=== PATIENT | male | born 1950 | race African-American/Black ===

== ENCOUNTER 2017-08-30 00:27 | Inpatient (IN) | payer MEDICARE, OTHER ==
[~2017-08-30] VITALS: Ht 167.6 cm; Wt 122.0 kg
[2017-08-30 04:00] VITALS: BP 155/84
[2017-08-30] MEDS ORDERED: AMLODIPINE BESYL5 MG ORAL (04:51)
[2017-08-30] MEDS ORDERED: VIAGRA25 MG ORAL (04:51)
[2017-08-30] MEDS ORDERED: SIMVASTATIN5 MG ORAL (04:51)
[2017-08-30] MEDS ORDERED: GLYBURIDE1.25 MG PO (04:51)
[2017-08-30] MEDS ORDERED: BUMETANIDE1 MG ORAL (04:51)
[2017-08-30] MEDS ORDERED: METOPROLOL TART25 MG ORAL (04:51)
[2017-08-30] MEDS ORDERED: Albuterol/Ipratropium 3ml neb HHN PRN (06:15)
[2017-08-30] MEDS ORDERED: NovoLOG Insulin Flexpen SUBQ SCH ×2 (06:30→11:30)
[2017-08-30] MEDS ORDERED: GlyBURIDE 2.5mg tab ORAL SCH (06:30)
[2017-08-30 08:00] VITALS: BP 134/74
[2017-08-30] MEDS: Aspirin Baby 81mg ORAL SCH (09:00)
[2017-08-30 09:11] LABS: BASOPHILS % (AUTO) 2.4 % (0.0-2.0); EOSINOPHILS % (AUTO) 3.5 % (0.0-3.0); LYMPHOCYTES % (AUTO) 15.4 % (20.0-45.0); MEAN CORPUSCULAR HEMOGLOBIN 24.3 PG (27.0-31.0); MEAN CORPUSCULAR HGB CONC 29.3 G/DL (32.0-36.0); MEAN CORPUSCULAR VOLUME 83 FL (80-99); MEAN PLATELET VOLUME 6.1 FL (6.5-10.1); MONOCYTES % (AUTO) 15.6 % (1.0-10.0); NEUTROPHILS % (AUTO) 63.1 % (45.0-75.0); PLATELET COUNT 249 K/UL (150-450); RED BLOOD COUNT 5.27 M/UL (4.70-6.10); RED CELL DISTRIBUTION WIDTH 16.9 % (11.6-14.8); WHITE BLOOD COUNT 5.5 K/UL (4.8-10.8)
[2017-08-30 09:30] LABS: CHLORIDE 105 MMOL/L (98-107); PHOSPHORUS 4.2 MG/DL (2.5-4.9)
[2017-08-30 09:50] LABS: ALANINE AMINOTRANSFERASE 23 U/L (12-78); ALBUMIN/GLOBULIN RATIO 0.7 (1.0-2.7); ANION GAP 8 mmol/L (5-15); ASPARTATE AMINO TRANSFERASE 31 U/L (15-37); CALCIUM 9.2 MG/DL (8.5-10.1); CARBON DIOXIDE 29 MMOL/L (21-32); CHOLESTEROL 147 MG/DL (< 200); CHOLESTEROL/HDL RATIO 3.3 (3.3-4.4); CREATININE 1.2 MG/DL (0.55-1.30); GLOMERULAR FILTRATION RATE > 60 mL/min (>60); MAGNESIUM 2.1 MG/DL (1.8-2.4); POTASSIUM 4.9 MMOL/L (3.5-5.1); SODIUM 141 MMOL/L (136-145); TOTAL PROTEIN 7.6 G/DL (6.4-8.2)
--- NOTE | 2017-08-30 11:12 | Diagnostic Imaging Report ---
Indication: Elevated renal function tests. Flank pain. Hypertension Technique: Grayscale and duplex images of the kidneys, retroperitoneum, and bladder were obtained. Comparison:None Findings: Right kidney measures 12 cm in length. Left kidney measures 12.3 cm in length. Both kidneys demonstrate normal echogenicity. No hydronephrosis. No focal abnormality. Normal inferior vena cava. Bladder is normal. Impression: negative.
[2017-08-30 12:00] VITALS: BP 148/75
--- NOTE | 2017-08-30 12:14 | Consultation ---
History of Present Illness General Date patient seen: Aug 30, 2017 Referring physician: Dr Love Reason for Consultation: dyspnea Present Illness HPI 66 year old male with hx of COPD, CHF, DM, morbid obesity, recurrent hospitalization in [facility] and [facility], was taken to [facility] b/o increased short of breath and chest pain. Acute VA was ruled out at [place] and he was [place] [facility] [place]. Allergies: Coded Allergies: No Known Allergies (Unverified , 08/30/17) Medication History Scheduled Amlodipine Besylate* (Amlodipine Besylate*), MG ORAL DAILY, (Reported) Bumetanide* (Bumetanide*), 1 MG ORAL TWICE A DAY, (Reported) Metoprolol Tartrate* (Metoprolol Tartrate*), 25 MG ORAL TWICE A DAY, (Reported) Sildenafil Citrate (Viagra), 25 MG ORAL BID, (Reported) Simvastatin (Zocor), MG ORAL BEDTIME, (Reported) Miscellaneous Medications Glyburide (Glyburide), MG PO, (Reported) Patient History Healthcare decision maker Resuscitation status Full Code Advanced Directive on File No Past Medical/Surgical History Past Medical/Surgical History: (1) Diabetes mellitus (2) COPD (chronic obstructive pulmonary disease) Review of Systems All Other Systems: negative except mentioned in HPI Physical Exam General Appearance: WD/WN Lines, tubes and drains: peripheral, central line HEENT: normocephalic, atraumatic Neck: non-tender, normal alignment, normal inspection Respiratory/Chest: chest wall non-tender, lungs clear Breasts: no masses Cardiovascular/Chest: normal peripheral pulses, normal rate, regularly irregular Abdomen: normal bowel sounds, no mass Genitourinary/Rectal: normal genital exam Last 24 Hour Vital Signs Date Time Temp Pulse Resp B/P (MAP) Pulse Ox O2 Delivery O2 Flow Rate FiO2 08/30/17 09:37 76 134/74 08/30/17 08:00 98.7 76 21 134/74 95 Nasal Cannula 2.0 08/30/17 07:05 78 16 Nasal Cannula 2.0 28 08/30/17 07:05 Nasal Cannula 2.0 28 08/30/17 07:05 98 Nasal Cannula 2.0 28 08/30/17 04:00 97.3 73 20 155/84 92 Nasal Cannula 2.0 08/30/17 04:00 97.3 73 20 155/84 92 Room Air Laboratory Tests Test 08/30/17 08:10 White Blood Count 5.5 K/UL (4.8-10.8) Red Blood Count 5.27 M/UL (4.70-6.10) Hemoglobin 12.8 G/DL (14.2-18.0) L Hematocrit 43.7 % (42.0-52.0) Mean Corpuscular Volume 83 FL (80-99) Mean Corpuscular Hemoglobin 24.3 PG (27.0-31.0) L Mean Corpuscular Hemoglobin Concent 29.3 G/DL (32.0-36.0) L Red Cell Distribution Width 16.9 % (11.6-14.8) H Platelet Count 249 K/UL (150-450) Mean Platelet Volume 6.1 FL (6.5-10.1) L Neutrophils (%) (Auto) 63.1 % (45.0-75.0) Lymphocytes (%) (Auto) 15.4 % (20.0-45.0) L Monocytes (%) (Auto) 15.6 % (1.0-10.0) H Eosinophils (%) (Auto) 3.5 % (0.0-3.0) H Basophils (%) (Auto) 2.4 % (0.0-2.0) H Sodium Level 141 MMOL/L (136-145) Potassium Level 4.9 MMOL/L (3.5-5.1) Chloride Level 105 MMOL/L (98-107) Carbon Dioxide Level 29 MMOL/L (21-32) Anion Gap 8 mmol/L (5-15) Blood Urea Nitrogen 30 mg/dL (7-18) H Creatinine 1.2 MG/DL (0.55-1.30) Estimat Glomerular Filtration Rate > 60 mL/min (>60) Glucose Level 115 MG/DL (74-106) H Calcium Level 9.2 MG/DL (8.5-10.1) Phosphorus Level 4.2 MG/DL (2.5-4.9) Magnesium Level 2.1 MG/DL (1.8-2.4) Total Bilirubin 0.7 MG/DL (0.2-1.0) Aspartate Amino Transf (AST/SGOT) 31 U/L (15-37) Alanine Aminotransferase (ALT/SGPT) 23 U/L (12-78) Alkaline Phosphatase 97 U/L (46-116) Troponin I 0.157 ng/mL (0.000-0.056) Total Protein 7.6 G/DL (6.4-8.2) Albumin 3.2 G/DL (3.4-5.0) L Globulin 4.4 g/dL Albumin/Globulin Ratio 0.7 (1.0-2.7) L Triglycerides Level 66 MG/DL (0-200) Cholesterol Level 147 MG/DL (< 200) LDL Cholesterol 92 mg/dL (<100) HDL Cholesterol 44 MG/DL (40-60) Cholesterol/HDL Ratio 3.3 (3.3-4.4) Height (Feet): 5 Height (Inches): 6.00 Weight (Pounds): 270 Medications Current Medications Medications (Trade) Dose Ordered Sig/Kalin Route PRN Reason Start Time Stop Time Status Last Admin Dose Admin Acetaminophen (Tylenol) 650 mg Q6H PRN ORAL Mild Pain/Temp > 100.5 08/30/17 06:30 09/29/17 06:29 Albuterol/ Ipratropium (Albuterol/ Ipratropium) 3 ml Q4H PRN HHN Shortness of Breath 08/30/17 06:15 09/04/17 06:14 Amlodipine Besylate (Norvasc) 5 mg DAILY ORAL 08/30/17 09:00 09/29/17 08:59 08/30/17 09:37 Aspirin (ASA) 81 mg DAILY ORAL 08/30/17 09:00 09/29/17 08:59 08/30/17 09:00 Dextrose (Dextrose 50%) STAT PRN IV Hypoglycemia 08/30/17 06:15 09/29/17 06:14 Glyburide (Diabeta) 2.5 mg BIDBL ORAL 08/31/17 13:00 09/30/17 12:59 Heparin Sodium (Porcine) (Heparin 5000 units/ml) 5,000 units EVERY 8 HOURS SUBQ 08/30/17 14:00 09/29/17 13:59 Insulin Aspart (NovoLOG) BEFORE MEALS AND HS SUBQ 08/30/17 11:30 09/29/17 11:29 Ondansetron HCl (Zofran) 4 mg Q6H PRN IVP Nausea & Vomiting 08/30/17 06:15 09/29/17 06:14 Assessment/Plan Problem List: (1) ACS (acute coronary syndrome) ICD Codes: I24.9 - Acute ischemic heart disease, unspecified SNOMED: 316624209 (2) CHF (congestive heart failure) ICD Codes: I50.9 - Heart failure, unspecified SNOMED: 77027219 (3) COPD (chronic obstructive pulmonary disease) ICD Codes: J44.9 - Chronic obstructive pulmonary disease, unspecified SNOMED: 42996399 (4) Diabetes mellitus ICD Codes: E11.9 - Type 2 diabetes mellitus without complications SNOMED: 84921657 (5) Morbid obesity ICD Codes: E66.01 - Morbid (severe) obesity due to excess calories SNOMED: 893210449, [id number] Assessment/Plan check echo serial troponin sliding scale diabetic diet diuretic monitor BP RIVERA HUMPHRIES Aug 30, 2017 12:14
[2017-08-30] MEDS ORDERED: Promethazine/Codeine 5ml UD ORAL PRN (12:15)
[2017-08-30] MEDS: Heparin 5000 units/ml inj SUBQ SCH ×2 (14:00→21:48)
--- NOTE | 2017-08-30 14:26 | Cardiac Electrophysiology PN ---
Subjective Subjective Cardiology consult Dictated [id number] Objective Last 24 Hour Vital Signs Date Time Temp Pulse Resp B/P (MAP) Pulse Ox O2 Delivery O2 Flow Rate FiO2 08/30/17 12:00 98.0 79 22 148/75 96 Room Air 08/30/17 09:37 76 134/74 08/30/17 08:00 98.7 76 21 134/74 95 Nasal Cannula 2.0 08/30/17 07:05 78 16 Nasal Cannula 2.0 28 08/30/17 07:05 Nasal Cannula 2.0 28 08/30/17 07:05 98 Nasal Cannula 2.0 28 08/30/17 04:00 97.3 73 20 155/84 92 Nasal Cannula 2.0 08/30/17 04:00 97.3 73 20 155/84 92 Room Air Laboratory Tests Test 08/30/17 08:10 White Blood Count 5.5 K/UL (4.8-10.8) Red Blood Count 5.27 M/UL (4.70-6.10) Hemoglobin 12.8 G/DL (14.2-18.0) L Hematocrit 43.7 % (42.0-52.0) Mean Corpuscular Volume 83 FL (80-99) Mean Corpuscular Hemoglobin 24.3 PG (27.0-31.0) L Mean Corpuscular Hemoglobin Concent 29.3 G/DL (32.0-36.0) L Red Cell Distribution Width 16.9 % (11.6-14.8) H Platelet Count 249 K/UL (150-450) Mean Platelet Volume 6.1 FL (6.5-10.1) L Neutrophils (%) (Auto) 63.1 % (45.0-75.0) Lymphocytes (%) (Auto) 15.4 % (20.0-45.0) L Monocytes (%) (Auto) 15.6 % (1.0-10.0) H Eosinophils (%) (Auto) 3.5 % (0.0-3.0) H Basophils (%) (Auto) 2.4 % (0.0-2.0) H Sodium Level 141 MMOL/L (136-145) Potassium Level 4.9 MMOL/L (3.5-5.1) Chloride Level 105 MMOL/L (98-107) Carbon Dioxide Level 29 MMOL/L (21-32) Anion Gap 8 mmol/L (5-15) Blood Urea Nitrogen 30 mg/dL (7-18) H Creatinine 1.2 MG/DL (0.55-1.30) Estimat Glomerular Filtration Rate > 60 mL/min (>60) Glucose Level 115 MG/DL (74-106) H Calcium Level 9.2 MG/DL (8.5-10.1) Phosphorus Level 4.2 MG/DL (2.5-4.9) Magnesium Level 2.1 MG/DL (1.8-2.4) Total Bilirubin 0.7 MG/DL (0.2-1.0) Aspartate Amino Transf (AST/SGOT) 31 U/L (15-37) Alanine Aminotransferase (ALT/SGPT) 23 U/L (12-78) Alkaline Phosphatase 97 U/L (46-116) Troponin I 0.157 ng/mL (0.000-0.056) Total Protein 7.6 G/DL (6.4-8.2) Albumin 3.2 G/DL (3.4-5.0) L Globulin 4.4 g/dL Albumin/Globulin Ratio 0.7 (1.0-2.7) L Triglycerides Level 66 MG/DL (0-200) Cholesterol Level 147 MG/DL (< 200) LDL Cholesterol 92 mg/dL (<100) HDL Cholesterol 44 MG/DL (40-60) Cholesterol/HDL Ratio 3.3 (3.3-4.4) GWENDOLYN LAL Aug 30, 2017 14:26
[2017-08-30] MEDS ORDERED: Nitroglycerin Subl 0.4mg tab SL PRN (14:45)
--- NOTE | 2017-08-30 15:16 | Diagnostic Imaging Report ---
Indication: COPD, shortness of breath Technique: One view of the chest Comparison: none Findings: Lungs and pleural spaces are clear. Heart size is enlarged. Impression: Cardiomegaly No acute process
--- NOTE | 2017-08-30 15:20 | History & Physical ---
History and Physical History & Physicial Job: [id number] Enrique Love MD Aug 30, 2017 15:20
--- NOTE | 2017-08-30 15:54 | Nephrology Progress Note ---
Assessment/Plan Problem List: (1) Azotemia (2) COPD (chronic obstructive pulmonary disease) (3) Diabetes mellitus (4) CHF (congestive heart failure) (5) Morbid obesity (6) ACS (acute coronary syndrome) Plan Consult dictated # [id number] Subjective Constitutional: Denies: no symptoms, chills, diaphoresis, fever, malaise, weakness, other HEENT: Denies: no symptoms, eye pain, blurred vision, tearing, double vision, ear pain, ear discharge, nose pain, nose congestion, throat pain, throat swelling, mouth pain, mouth swelling, other Genitourinary: Denies: no symptoms, burning, discharge, frequency, flank pain, hematuria, incontinence, pain, urgency, other Neurologic/Psychiatric: Denies: no symptoms, anxiety, depressed, emotional problems, headache, numbness, paresthesia, pre-existing deficit, seizure, tingling, tremors, weakness, other Subjective In bed, in no apparent distress Objective Objective Last 24 Hour Vital Signs Date Time Temp Pulse Resp B/P (MAP) Pulse Ox O2 Delivery O2 Flow Rate FiO2 08/30/17 12:00 75 08/30/17 12:00 98.0 79 22 148/75 96 Room Air 08/30/17 09:37 76 134/74 08/30/17 08:00 98.7 76 21 134/74 95 Nasal Cannula 2.0 08/30/17 07:05 78 16 Nasal Cannula 2.0 28 08/30/17 07:05 Nasal Cannula 2.0 28 08/30/17 07:05 98 Nasal Cannula 2.0 28 08/30/17 04:00 97.3 73 20 155/84 92 Nasal Cannula 2.0 08/30/17 04:00 97.3 73 20 155/84 92 Room Air 08/30/17 03:44 72 Laboratory Tests 08/30/17 08:10: White Blood Count 5.5, Red Blood Count 5.27, Hemoglobin 12.8L, Hematocrit 43.7, Mean Corpuscular Volume 83, Mean Corpuscular Hemoglobin 24.3L, Mean Corpuscular Hemoglobin Concent 29.3L, Red Cell Distribution Width 16.9H, Platelet Count 249 , Mean Platelet Volume 6.1L, Neutrophils (%) (Auto) 63.1, Lymphocytes (%) (Auto ) 15.4L, Monocytes (%) (Auto) 15.6H, Eosinophils (%) (Auto) 3.5H, Basophils (%) (Auto) 2.4H, Sodium Level 141, Potassium Level 4.9, Chloride Level 105, Carbon Dioxide Level 29, Anion Gap 8, Blood Urea Nitrogen 30H, Creatinine 1.2, Estimat Glomerular Filtration Rate > 60, Glucose Level 115H, Calcium Level 9.2, Phosphorus Level 4.2, Magnesium Level 2.1, Total Bilirubin 0.7, Aspartate Amino Transf (AST/SGOT) 31, Alanine Aminotransferase (ALT/SGPT) 23, Alkaline Phosphatase 97, Troponin I 0.157H, Total Protein 7.6, Albumin 3.2L, Globulin 4.4 , Albumin/Globulin Ratio 0.7L, Triglycerides Level 66, Cholesterol Level 147, LDL Cholesterol 92, HDL Cholesterol 44, Cholesterol/HDL Ratio 3.3 Height (Feet): 5 Height (Inches): 6.00 Weight (Pounds): 270 General Appearance: no apparent distress, alert EENT: normal ENT inspection Neck: normal alignment Cardiovascular: normal rate, regular rhythm Respiratory/Chest: lungs clear, normal breath sounds, no respiratory distress Abdomen: non tender, no organomegaly, distended Extremities: non-tender, normal inspection, no calf tenderness Neurologic: alert, oriented x 3, responsive, normal mood/affect Helen Manjarrez N.P. Aug 30, 2017 15:54
[2017-08-30 16:00] VITALS: BP 147/73
[2017-08-30] MEDS: NovoLOG Insulin Flexpen SUBQ SCH ×3 (16:55→21:19)
[2017-08-30] MEDS ORDERED: Norco 5mg/325mg tab ORAL PRN (18:15)
[2017-08-30 20:30] VITALS: BP 146/82
[2017-08-30] MEDS: Metoprolol 25mg tab ORAL SCH (21:17)
--- NOTE | 2017-08-30 22:15 | History and Physical Report ---
DATE OF ADMISSION: 08/30/2017 CHIEF COMPLAINT: Shortness of breath. HISTORY OF PRESENT ILLNESS: This is a 66-year-old gentleman with a past medical history significant for chronic obstructive pulmonary disease, hypertension, diabetes type 2, morbid obesity, and congestive heart failure, who has presented to the hospital complaining about shortness of breath. The patient was initially seen at the [facility] complaining about shortness of breath and "feeling sick." He was at the [facility] for six days and then subsequently was discharged today and back to the emergency room due to the chest tightness and shortness of breath. He stated that he has been having a chest pressure and trouble breathing and unable to use his oxygen at board and subsequently decided to come to the hospital. Shortly after initial evaluation at the [facility], the patient was transferred to the [facility] with acute congestive heart failure exacerbation and chronic as well as chest pain, possible acute coronary syndrome. PAST MEDICAL HISTORY AND PAST SURGICAL HISTORY: As above. History of diabetes type 2, hypertension, chronic obstructive pulmonary disease, congestive heart failure, and history of syncope. MEDICATIONS: Medications at home is significant for amlodipine 5 mg daily, bumetanide 1 mg twice a day, glyburide 1.25 mg twice a day, metoprolol 25 mg twice a day, Viagra 25 mg twice a day, and simvastatin 5 mg p.o. daily. ALLERGIES: No known drug allergies. SOCIAL HISTORY: The patient denies any smoking, alcohol, or drugs at this time. FAMILY HISTORY: Noncontributory. REVIEW OF SYSTEMS: Mostly as above. Complained of pedal edema. Denies any hemoptysis or hematochezia. Denies any suicidal or homicidal ideation. Denies any loss of consciousness. Complained about dyspnea on exertion. Denies any double vision. Denies any fall. Denies any bowel or urinary incontinence. PHYSICAL EXAMINATION: VITAL SIGNS: On admission in the ER is significant for temperature of 98, pulse of 79, respirations 22, and blood pressure 148/75. GENERAL: The patient is awake, responsive, and in no acute distress. HEAD AND NECK: Pupils are equal and reactive to light. Extraocular muscles are intact. NECK: Supple. Positive JVD. LUNGS: Good air entry. No wheezing or rales. Decreased air in the bases. HEART: Reveals S1 and S2. Distant heart sounds. No murmur was appreciated. ABDOMEN: Soft, nondistended, and nontender. Morbidly obese. EXTREMITIES: A +1 edema in bilateral lower extremity with hyperpigmentation of bilateral lower extremities. No cyanosis or clubbing. NEUROLOGIC: Cranial nerves II through XII are grossly intact. Motor is 5/5 in all extremities. LABORATORY DATA: Laboratory from today WBC of 5.5, hemoglobin 12, hematocrit 43, and platelets is 249,000. Sodium 141, potassium 4.9, chloride 105, bicarbonate 29, BUN 30, and creatinine 1.2. GFR is more than 60. First troponin is 0.157. Albumin is 3.2. Triglyceride is 66. Cholesterol is 147. The patient had a renal ultrasound done, negative. Bladder is normal. The patient's EKG was noted to be normal sinus rhythm with a ventricular rate of 80 and left atrial enlargement. Otherwise, no ST elevation was noted. ASSESSMENT: 1. Acute congestive heart failure exacerbation on chronic, possible diastolic dysfunction. 2. Chronic obstructive pulmonary disease. 3. Chronic hypoxemia, oxygen-dependent. 4. Chest pain, possible acute coronary syndrome. 5. Hyperkalemia. 6. Morbid obesity. 7. Diabetes type 2. 8. Hypertension. PLAN: Admit the patient to telemetry. We will follow up laboratory, chest x-ray, and 2D echo. Discussed the case with Dr. Wei Prabhakar from Cardiology and Dr. Bella Carrington from Pulmonary Critical Care. Accu-Chek with sliding scale. We will resume home medications. Start the patient on aspirin and nebulizer treatment. We will monitor laboratory. It was noted in [facility] record, the patient had a chest x-ray that showed patchy bilateral infiltrates versus pulmonary vascular congestion versus poor inspiration as well as duplex of the lower extremity was done, results are not available. Enrique Love M.D. DR: EVELIA JOB#: [id number] CC:
--- NOTE | 2017-08-31 00:32 | Consultation ---
DATE OF CONSULTATION: 08/30/2017 CARDIOLOGY CONSULTATION CONSULTING PHYSICIAN: Wei Prabhakar M.D. REFERRING PHYSICIAN: Enrique Love M.D. REASON FOR CONSULTATION: Management of hypertension and congestive heart failure. HISTORY OF PRESENT ILLNESS: The patient is a 66-year-old gentleman with history of hypertension, diabetes, congestive heart failure, history of COPD, and morbid obesity with recent hospitalization at [facility] as well as [facility] just last week. The patient was taken to [facility] for increased shortness of breath and increased lower extremity edema. The patient was ruled out for myocardial infarction and was transferred to [facility] for further evaluation and management. At the time of my evaluation, the patient is feeling better with diuresis. PAST MEDICAL HISTORY: 1. Hypertension. 2. Congestive heart failure. 3. Pulmonary hypertension. 4. The patient denies prior myocardial infarction or coronary artery disease or prior pacemaker implantation. MEDICATIONS: Includes, 1. Norvasc daily. 2. Bumex 1 mg b.i.d. 3. Metoprolol 25 mg b.i.d. 4. Sildenafil. 5. Zocor. REVIEW OF SYSTEMS: Review of systems was performed and was negative other than what was mentioned in the history of present illness. PHYSICAL EXAMINATION: VITAL SIGNS: Blood pressure is 148/75, pulse 79, respirations 18, and he is afebrile. HEAD AND NECK: Shows no JVD. LUNGS: Clear. CARDIOVASCULAR: Shows regular S1 and S2 with no gallop or murmur. ABDOMEN: Soft. EXTREMITIES: A 2+ pitting edema. LABORATORY AND DIAGNOSTIC DATA: White count 5.5, hematocrit 12.8, hematocrit 43.7, and platelet count 249,000. Sodium 141, potassium 4.9, BUN 30, creatinine 1.2, and glucose of 115. Troponin is 0.157. ASSESSMENT AND PLAN: 1. Chest pain, elevated troponin. We will completely rule out myocardial infarction protocol. The patient does not have acute renal failure and creatinine is in normal range. Continue the patient on aspirin, beta-angy, and statin. We will schedule the patient for nuclear stress test if troponin improves. 2. Congestive heart failure. We will get an echocardiogram. Discontinue Norvasc and start the patient on Lasix 40 mg IV b.i.d. Echocardiogram again is pending. 3. Chronic obstructive pulmonary disease. 4. Hypertension. Continue current heart failure therapy. 5. Diabetes. Thank you very much, Dr. Love, for allowing me to participate in the care of this patient. Please do not hesitate to contact me for any questions regarding my evaluation. Wei Prabhakar M.D. DR: KAILA JOB#: [id number] CC:
[2017-08-31 00:45] VITALS: BP 135/90
--- NOTE | 2017-08-31 01:17 | Consultation ---
DATE OF CONSULTATION: 08/30/2017 NEPHROLOGY CONSULTATION CONSULTING PHYSICIAN: Noe Cavazos M.D. HISTORY OF PRESENT ILLNESS: The patient is a 66-year-old, male with a past medical history significant for congestive heart failure, diabetes, morbid obesity, chronic obstructive pulmonary disease who was transferred here from [facility] this morning. He was recently hospitalized for five days at [facility]. He stated that prior to the hospital admission at [place], he was experiencing shortness of breath as well as chest pain. He stated that when he was being released yesterday, he told them that he does not feel well and he was still discharged. At 4 o'clock after discharge, he went to [facility] from where he was transferred here today. He stated that he was having worsening shortness of breath after discharge from [facility] as well as weakness, bilateral lower extremity edema, nausea without vomiting, and some chest discomfort. He denies fever or chills, denies any headaches, resting in bed at this time in no apparent distress. He states that he feels better than yesterday. PAST MEDICAL HISTORY: Chronic obstructive pulmonary disease, diabetes mellitus, morbid obesity, and congestive heart failure. MEDICATIONS: Amlodipine 5 mg p.o. daily, bumetanide 1 mg p.o. b.i.d., glyburide 1.25 mg p.o. b.i.d., metoprolol 25 mg p.o. b.i.d., Viagra 25 mg p.o. b.i.d. p.r.n., simvastatin 5 mg p.o. daily at bedtime. ALLERGIES: He has no known allergies. SOCIAL HISTORY: He stated that he lives at home. Denies any smoking history. Denies alcohol or drug use. FAMILY HISTORY: Noncontributory. REVIEW OF SYSTEMS: A full 12-point review of systems was reviewed with the patient and positive as stated in the HPI. PHYSICAL EXAMINATION: GENERAL: This is a 66-year-old male, lying in bed, in no apparent distress. VITAL SIGNS: Blood pressure 148/75, heart rate is 79, respiratory rate 22, temperature is 98.0 degrees, and O2 saturation is 96% on 2 liters. HEENT: Head is normocephalic and atraumatic. Pupils are equal, round, and reactive to light and accommodation. NECK: Supple. No JVD noted. LUNGS: Clear to auscultation bilaterally. No crackles. No wheezing. CARDIOVASCULAR: Regular rate and rhythm. ABDOMEN: Distended. Nontender. Positive bowel sounds. EXTREMITIES: Well healed wounds on bilateral lower extremity. NEUROLOGIC: The patient is awake, alert, and oriented x3 with no focal deficits. LABORATORY AND DIAGNOSTIC DATA: CBC, white count 5.5, hemoglobin 12.8, hematocrit 43.7, and platelet count of 249. BMP, sodium 141, potassium 4.9, chloride 105, bicarbonate 29, BUN 30, creatinine 1.2, and blood glucose 115. Troponin is high at 0.157. Radiologic findings, chest x-ray findings, lungs and pleural spaces are clear. Heart size is enlarged. Impression, cardiomegaly. No acute process. Renal ultrasound findings, right kidney measures 12 cm in length and left kidney measures 12.3 cm in length. Both kidneys demonstrate normal echogenicity. No hydronephrosis. No focal abnormality. Normal inferior vena cava. Bladder is normal. Impression, negative. ASSESSMENT: 1. Azotemia. 2. Shortness of breath. 3. Chronic obstructive pulmonary disease exacerbation. 4. Chest pain. 5. Generalized weakness. 6. Nausea. 7. Rule out acute coronary syndrome. 8. Diabetes. 9. Hypertension. 10. Morbid obesity. PLAN: Renal ultrasound is negative. We will monitor renal function and correct as needed. We will renally dose medications. Avoid nephrotoxins. We will monitor electrolytes. Continue oxygen therapy. Pain management as needed. We will add TSH lab to the morning labs. We will follow up with other consults recommendations. We will monitor the patient's overall response to treatment. Noe Cavazos M.D. Helen Manjarrez DR: FREDRICK JOB#: [id number] CC:
[2017-08-31 05:01] VITALS: BP 132/82
[2017-08-31 05:09] LABS: ANION GAP 5 mmol/L (5-15); CALCIUM 8.3 MG/DL (8.5-10.1); CARBON DIOXIDE 31 MMOL/L (21-32); CHLORIDE 105 MMOL/L (98-107); CREATININE 1.7 MG/DL (0.55-1.30); GLOMERULAR FILTRATION RATE 49.3 mL/min (>60); POTASSIUM 5.2 MMOL/L (3.5-5.1); SODIUM 140 MMOL/L (136-145); THYROID STIMULATING HORMONE 2.938 uiU/mL (0.360-3.740)
[2017-08-31] MEDS: Heparin 5000 units/ml inj SUBQ SCH ×3 (06:00→21:57)
[2017-08-31] MEDS: NovoLOG Insulin Flexpen SUBQ SCH ×4 (06:30→20:10)
[2017-08-31 08:34] VITALS: BP 151/92
[2017-08-31] MEDS: Metoprolol 25mg tab ORAL SCH ×2 (08:47→20:08)
[2017-08-31] MEDS: Aspirin Baby 81mg ORAL SCH (08:47)
[2017-08-31 11:45] VITALS: BP 137/79
[2017-08-31] MEDS ORDERED: GlyBURIDE 2.5mg tab ORAL SCH (13:00)
[2017-08-31] MEDS ORDERED: Simethicone 80mg tab ORAL PRN (14:30)
--- NOTE | 2017-08-31 14:37 | Internal Med Progress Note ---
Subjective Physician Name Enrique Love Attending Physician Enrique Love MD Current Medications Medications (Trade) Dose Ordered Sig/Kalin Route PRN Reason Start Time Stop Time Status Last Admin Dose Admin Acetaminophen (Tylenol) 650 mg Q6H PRN ORAL Mild Pain/Temp > 100.5 08/30/17 06:30 09/29/17 06:29 08/30/17 14:07 Acetaminophen/ Hydrocodone Bitart ([place] 5/325) 1 tab Q6H PRN ORAL PAIN 4-10 08/30/17 18:15 09/06/17 18:14 Albuterol/ Ipratropium (Albuterol/ Ipratropium) 3 ml Q4H PRN HHN Shortness of Breath 08/30/17 06:15 09/04/17 06:14 Aspirin (ASA) 81 mg DAILY ORAL 08/30/17 09:00 09/29/17 08:59 08/31/17 08:47 Atorvastatin Calcium (Lipitor) 10 mg BEDTIME ORAL 08/30/17 21:00 09/29/17 20:59 08/30/17 21:17 Dextrose (Dextrose 50%) STAT PRN IV Hypoglycemia 08/30/17 12:15 09/29/17 12:14 Heparin Sodium (Porcine) (Heparin 5000 units/ml) 5,000 units EVERY 8 HOURS SUBQ 08/30/17 14:00 09/29/17 13:59 Insulin Aspart (NovoLOG) BEFORE MEALS AND HS SUBQ 08/30/17 16:30 09/29/17 16:29 08/31/17 12:50 Metoprolol Tartrate (Lopressor) 25 mg EVERY 12 HOURS ORAL 08/30/17 21:00 09/29/17 20:59 08/31/17 08:47 Nitroglycerin (Ntg) 0.4 mg Q5MIN X 3 DOSES PRN SL Prn Chest Pain 08/30/17 14:45 09/29/17 14:44 Ondansetron HCl (Zofran) 4 mg Q6H PRN IVP Nausea & Vomiting 08/30/17 06:15 09/29/17 06:14 Promethazine HCl/ Codeine (Phenergan with Codeine) 5 ml Q4H PRN ORAL For Cough 08/30/17 12:15 09/29/17 12:14 Allergies: Coded Allergies: No Known Allergies (Unverified , 08/30/17) Subjective awake, alert, responsive, Less SOB, No CP, C/O Gas Objective Last Vital Signs Date Time Temp Pulse Resp B/P (MAP) Pulse Ox O2 Delivery O2 Flow Rate FiO2 08/31/17 12:00 67 08/31/17 11:45 97.3 20 137/79 98 Nasal Cannula 2.0 08/31/17 07:21 28 Laboratory Tests Test 08/30/17 16:00 08/30/17 22:00 08/31/17 03:15 08/31/17 06:00 Troponin I 0.161 ng/mL (0.000-0.056) 0.171 ng/mL (0.000-0.056) 0.155 ng/mL (0.000-0.056) 0.165 ng/mL (0.000-0.056) Sodium Level 140 MMOL/L (136-145) Potassium Level 5.2 MMOL/L (3.5-5.1) H Chloride Level 105 MMOL/L (98-107) Carbon Dioxide Level 31 MMOL/L (21-32) Anion Gap 5 mmol/L (5-15) Blood Urea Nitrogen 46 mg/dL (7-18) H Creatinine 1.7 MG/DL (0.55-1.30) H Estimat Glomerular Filtration Rate 49.3 mL/min (>60) Glucose Level 108 MG/DL (74-106) H Hemoglobin A1c 6.6 % (4.3-6.0) H Calcium Level 8.3 MG/DL (8.5-10.1) L Pro-B-Type Natriuretic Peptide 2553 pg/mL (0-125) H Thyroid Stimulating Hormone (TSH) 2.938 uiU/mL (0.360-3.740) Free Thyroxine 1.05 NG/DL (0.10-1.46) Microbiology Date/Time Source Procedure Growth Status 08/30/17 04:00 Nasal Nares MRSA Culture - Final Staphylococcus Aureus - Mrsa Complete Intake and Output 08/31/17 09/01/17 19:00 07:00 Intake Total 240 ml Output Total 200 ml Balance 40 ml Intake Oral 240 ml Output Urine Total 200 ml # Bowel Movements 1 Objective GENERAL: The patient is awake, responsive, and in no acute distress. HEAD AND NECK: Pupils are equal and reactive to light. Extraocular muscles are intact. NECK: Supple. Positive JVD. LUNGS: Good air entry. No wheezing or rales. Decreased air in the bases. HEART: Reveals S1 and S2. Distant heart sounds. No murmur. ABDOMEN: Soft, nondistended, and nontender. Morbidly obese. EXTREMITIES: A +1 edema in bilateral lower extremity with hyperpigmentation of bilateral lower extremities. No cyanosis or clubbing. 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 NEUROLOGIC: Cranial nerves II through XII are grossly intact. Motor is 5/5 in all extremities. Assessment/Plan Assessment/Plan ASSESSMENT: 1. Acute congestive heart failure exacerbation on chronic, possible diastolic dysfunction. 2. Chronic obstructive pulmonary disease. 3. Chronic hypoxemia, oxygen-dependent. 4. Chest pain, possible acute coronary syndrome. 5. Hyperkalemia. 6. Morbid obesity. 7. Diabetes type 2. 8. Hypertension. 9. EMMANUEL on CKD. PLAN: On telemetry. Monitor laboratory and 2D echo. Dr. Wei Prabhakar from Cardiology and Dr. Bella Carrington from Pulmonary Critical Care. Accu-Chek with sliding scale. start Enrique Gregory IV, MD Aug 31, 2017 14:37
--- NOTE | 2017-08-31 15:40 | Pulmonology Progress Note ---
Assessment/Plan Assessment/Plan ASSESSMENT Chest pain r/o ACS elevated troponin CHF with diastolic dysfunction severe pulmonary HTN COPD /asthma DM morbid obesity PLAN OF CARE Tele serial troponin cardio follows diuretic- lasix IV, monitor I/O, renal parameters, lytes ECHO with pEF 60-65% and RVSP of 73 c/w severe pulmonary HTN, along with severe TR Lipid panel stable on ASA, BB and statin Nitro prn BP management with BB angy cardio considering stress test if troponin improved O2 HHN prn no evidence of respiratory distress BS management with SS of insulin renal US negative DVT prophylaxis case discussed and evaluated by supervising physician Subjective Allergies: Coded Allergies: No Known Allergies (Unverified , 08/30/17) Subjective denies chest pain today troponin still elevated with small trend up + occasional SOB, hx of asthma, no wheezing, no cough Objective Last 24 Hour Vital Signs Date Time Temp Pulse Resp B/P (MAP) Pulse Ox O2 Delivery O2 Flow Rate FiO2 08/31/17 12:00 67 08/31/17 11:45 97.3 66 20 137/79 98 Nasal Cannula 2.0 08/31/17 08:47 74 151/92 08/31/17 08:34 97.2 74 20 151/92 94 Nasal Cannula 2.0 08/31/17 08:00 76 08/31/17 07:21 93 Nasal Cannula 2.0 28 08/31/17 07:21 Room Air 2.0 28 08/31/17 07:21 69 16 Nasal Cannula 2.0 28 08/31/17 05:01 97.2 67 22 132/82 94 Nasal Cannula 2.0 08/31/17 04:00 72 08/31/17 00:45 97.0 67 22 135/90 94 Nasal Cannula 2.0 08/31/17 00:00 69 08/30/17 21:17 78 147/78 08/30/17 20:30 97.0 79 22 146/82 96 Nasal Cannula 2.0 08/30/17 20:00 Room Air 08/30/17 20:00 80 08/30/17 20:00 76 18 Nasal Cannula 2.0 28 08/30/17 20:00 98 Nasal Cannula 2.0 28 08/30/17 16:00 97.7 77 21 147/73 94 Room Air 08/30/17 16:00 74 Intake and Output 08/31/17 09/01/17 19:00 07:00 Intake Total 240 ml Output Total 200 ml Balance 40 ml Intake Oral 240 ml Output Urine Total 200 ml # Bowel Movements 1 General Appearance: no acute distress, other - obese AA male in NAD HEENT: normocephalic Respiratory/Chest: lungs clear, no respiratory distress, no accessory muscle use Cardiovascular: normal rate - SR on tele , regular rhythm Abdomen: normal bowel sounds, soft, non tender - obese Extremities: no edema, pedal pulses normal Neurologic/Psychiatric: no motor/sensory deficits, alert, oriented x 3, responsive, normal mood/affect Musculoskeletal: normal muscle bulk Microbiology Date/Time Source Procedure Growth Status 08/30/17 04:00 Nasal Nares MRSA Culture - Final Staphylococcus Aureus - Mrsa Complete Laboratory Tests 08/30/17 16:00: Troponin I 0.161H 08/30/17 22:00: Troponin I 0.171H 08/31/17 03:15: Troponin I 0.155H, Sodium Level 140, Potassium Level 5.2H, Chloride Level 105, Carbon Dioxide Level 31, Anion Gap 5, Blood Urea Nitrogen 46H, Creatinine 1.7H, Estimat Glomerular Filtration Rate 49.3, Glucose Level 108H, Hemoglobin A1c 6.6H , Calcium Level 8.3L, Pro-B-Type Natriuretic Peptide 2553H, Thyroid Stimulating Hormone (TSH) 2.938, Free Thyroxine 1.05 08/31/17 06:00: Troponin I 0.165H 08/31/17 14:10: Troponin I 0.201H Current Medications Medications (Trade) Dose Ordered Sig/Kalin Route PRN Reason Start Time Stop Time Status Last Admin Dose Admin Acetaminophen (Tylenol) 650 mg Q6H PRN ORAL Mild Pain/Temp > 100.5 08/30/17 06:30 09/29/17 06:29 08/30/17 14:07 Acetaminophen/ Hydrocodone Bitart ([place] 5/325) 1 tab Q6H PRN ORAL PAIN 4-10 08/30/17 18:15 09/06/17 18:14 Albuterol/ Ipratropium (Albuterol/ Ipratropium) 3 ml Q4H PRN HHN Shortness of Breath 08/30/17 06:15 09/04/17 06:14 Aspirin (ASA) 81 mg DAILY ORAL 08/30/17 09:00 09/29/17 08:59 08/31/17 08:47 Atorvastatin Calcium (Lipitor) 10 mg BEDTIME ORAL 08/30/17 21:00 09/29/17 20:59 08/30/17 21:17 Dextrose (Dextrose 50%) STAT PRN IV Hypoglycemia 08/30/17 12:15 09/29/17 12:14 Furosemide (Lasix) 20 mg EVERY 12 HOURS IV 08/31/17 15:30 09/30/17 15:29 Heparin Sodium (Porcine) (Heparin 5000 units/ml) 5,000 units EVERY 8 HOURS SUBQ 08/30/17 14:00 09/29/17 13:59 08/31/17 14:39 Insulin Aspart (NovoLOG) BEFORE MEALS AND HS SUBQ 08/30/17 16:30 09/29/17 16:29 08/31/17 12:50 Metoprolol Tartrate (Lopressor) 25 mg EVERY 12 HOURS ORAL 08/30/17 21:00 09/29/17 20:59 08/31/17 08:47 Nitroglycerin (Ntg) 0.4 mg Q5MIN X 3 DOSES PRN SL Prn Chest Pain 08/30/17 14:45 09/29/17 14:44 Ondansetron HCl (Zofran) 4 mg Q6H PRN IVP Nausea & Vomiting 08/30/17 06:15 09/29/17 06:14 Promethazine HCl/ Codeine (Phenergan with Codeine) 5 ml Q4H PRN ORAL For Cough 08/30/17 12:15 09/29/17 12:14 Simethicone (Mylicon) 80 mg QIDPRN PRN ORAL GAS 08/31/17 14:30 09/30/17 14:29 Rink[facility]Jewish [facility] HospitalCarlyn Schneider NP Aug 31, 2017 15:39
[2017-08-31 15:48] VITALS: BP 132/76
--- NOTE | 2017-08-31 16:42 | Cardiac Electrophysiology PN ---
Assessment/Plan Assessment/Plan 1. Chest pain, elevated troponin. 6 Troponins are flat and likely due to renal failure as creatinine is 1.7. Continue the patient on aspirin, beta-angy, and statin. We will schedule the patient for nuclear stress test. 2. Congestive heart failure. Echocardiogram. EF 65%. Decrease Lasix to 40 mg IV daily 3. Chronic obstructive pulmonary disease. 4. Hypertension. Continue current heart failure therapy. 5. Diabetes. 6. Renal failure with azotemia. Decrease Lasix to 40 iv daily DW RN Subjective Subjective Feeling better with Lasix. RN at bedside. Objective Last 24 Hour Vital Signs Date Time Temp Pulse Resp B/P (MAP) Pulse Ox O2 Delivery O2 Flow Rate FiO2 08/31/17 15:48 97.2 66 20 132/76 95 Room Air 08/31/17 12:00 67 08/31/17 11:45 97.3 66 20 137/79 98 Nasal Cannula 2.0 08/31/17 08:47 74 151/92 08/31/17 08:34 97.2 74 20 151/92 94 Nasal Cannula 2.0 08/31/17 08:00 76 08/31/17 07:21 93 Nasal Cannula 2.0 28 08/31/17 07:21 Room Air 2.0 28 08/31/17 07:21 69 16 Nasal Cannula 2.0 28 08/31/17 05:01 97.2 67 22 132/82 94 Nasal Cannula 2.0 08/31/17 04:00 72 08/31/17 00:45 97.0 67 22 135/90 94 Nasal Cannula 2.0 08/31/17 00:00 69 08/30/17 21:17 78 147/78 08/30/17 20:30 97.0 79 22 146/82 96 Nasal Cannula 2.0 08/30/17 20:00 Room Air 08/30/17 20:00 80 08/30/17 20:00 76 18 Nasal Cannula 2.0 28 08/30/17 20:00 98 Nasal Cannula 2.0 28 Intake and Output 08/31/17 09/01/17 19:00 07:00 Intake Total 240 ml Output Total 400 ml Balance -160 ml Intake Oral 240 ml Output Urine Total 400 ml # Voids 1 # Bowel Movements 1 Laboratory Tests Test 08/30/17 22:00 08/31/17 03:15 08/31/17 06:00 08/31/17 14:10 Troponin I 0.171 ng/mL (0.000-0.056) 0.155 ng/mL (0.000-0.056) 0.165 ng/mL (0.000-0.056) 0.201 ng/mL (0.000-0.056) Sodium Level 140 MMOL/L (136-145) Potassium Level 5.2 MMOL/L (3.5-5.1) H Chloride Level 105 MMOL/L (98-107) Carbon Dioxide Level 31 MMOL/L (21-32) Anion Gap 5 mmol/L (5-15) Blood Urea Nitrogen 46 mg/dL (7-18) H Creatinine 1.7 MG/DL (0.55-1.30) H Estimat Glomerular Filtration Rate 49.3 mL/min (>60) Glucose Level 108 MG/DL (74-106) H Hemoglobin A1c 6.6 % (4.3-6.0) H Calcium Level 8.3 MG/DL (8.5-10.1) L Pro-B-Type Natriuretic Peptide 2553 pg/mL (0-125) H Thyroid Stimulating Hormone (TSH) 2.938 uiU/mL (0.360-3.740) Free Thyroxine 1.05 NG/DL (0.10-1.46) Microbiology Date/Time Source Procedure Growth Status 08/30/17 04:00 Nasal Nares MRSA Culture - Final Staphylococcus Aureus - Mrsa Complete Objective HEAD AND NECK: Shows no JVD. LUNGS: Clear. CARDIOVASCULAR: Shows regular S1 and S2 with no gallop or murmur. ABDOMEN: Soft. EXTREMITIES: A 2+ pitting edema. GWENDOLYN LAL Aug 31, 2017 16:42
--- NOTE | 2017-08-31 17:05 | Nephrology Progress Note ---
Assessment/Plan Problem List: (1) Azotemia (2) COPD (chronic obstructive pulmonary disease) (3) Diabetes mellitus (4) CHF (congestive heart failure) (5) Morbid obesity (6) ACS (acute coronary syndrome) Plan Continue current treatment plan Monitor lytes, correct prn Monitor renal function Renally dose meds, avoid nephrotoxins Cardio following Subjective Constitutional: Denies: no symptoms, chills, diaphoresis, fever, malaise, weakness, other HEENT: Denies: no symptoms, eye pain, blurred vision, tearing, double vision, ear pain, ear discharge, nose pain, nose congestion, throat pain, throat swelling, mouth pain, mouth swelling, other Genitourinary: Denies: no symptoms, burning, discharge, frequency, flank pain, hematuria, incontinence, pain, urgency, other Neurologic/Psychiatric: Denies: no symptoms, anxiety, depressed, emotional problems, headache, numbness, paresthesia, pre-existing deficit, seizure, tingling, tremors, weakness, other Subjective In bed, in no apparent distress, states that he feels better Objective Objective Last 24 Hour Vital Signs Date Time Temp Pulse Resp B/P (MAP) Pulse Ox O2 Delivery O2 Flow Rate FiO2 08/31/17 16:00 65 08/31/17 15:48 97.2 66 20 132/76 95 Room Air 08/31/17 12:00 67 08/31/17 11:45 97.3 66 20 137/79 98 Nasal Cannula 2.0 08/31/17 08:47 74 151/92 08/31/17 08:34 97.2 74 20 151/92 94 Nasal Cannula 2.0 08/31/17 08:00 76 08/31/17 07:21 93 Nasal Cannula 2.0 28 08/31/17 07:21 Room Air 2.0 28 08/31/17 07:21 69 16 Nasal Cannula 2.0 28 08/31/17 05:01 97.2 67 22 132/82 94 Nasal Cannula 2.0 08/31/17 04:00 72 08/31/17 00:45 97.0 67 22 135/90 94 Nasal Cannula 2.0 08/31/17 00:00 69 08/30/17 21:17 78 147/78 08/30/17 20:30 97.0 79 22 146/82 96 Nasal Cannula 2.0 08/30/17 20:00 Room Air 08/30/17 20:00 80 08/30/17 20:00 76 18 Nasal Cannula 2.0 28 08/30/17 20:00 98 Nasal Cannula 2.0 28 Intake and Output 08/31/17 09/01/17 19:00 07:00 Intake Total 240 ml Output Total 400 ml Balance -160 ml Intake Oral 240 ml Output Urine Total 400 ml # Voids 1 # Bowel Movements 1 Laboratory Tests 08/30/17 22:00: Troponin I 0.171H 08/31/17 03:15: Troponin I 0.155H, Sodium Level 140, Potassium Level 5.2H, Chloride Level 105, Carbon Dioxide Level 31, Anion Gap 5, Blood Urea Nitrogen 46H, Creatinine 1.7H, Estimat Glomerular Filtration Rate 49.3, Glucose Level 108H, Hemoglobin A1c 6.6H , Calcium Level 8.3L, Pro-B-Type Natriuretic Peptide 2553H, Thyroid Stimulating Hormone (TSH) 2.938, Free Thyroxine 1.05 08/31/17 06:00: Troponin I 0.165H 08/31/17 14:10: Troponin I 0.201H Height (Feet): 5 Height (Inches): 6.00 Weight (Pounds): 270 General Appearance: no apparent distress, alert EENT: normal ENT inspection Neck: normal alignment Cardiovascular: normal rate, regular rhythm Respiratory/Chest: decreased breath sounds Abdomen: distended Extremities: non-tender, other - Healed wounds Neurologic: alert, oriented x 3, responsive, normal mood/affect Helen Manjarrez N.P. Aug 31, 2017 17:05
[2017-08-31 20:00] VITALS: BP 151/92
[2017-09-01 00:27] VITALS: BP 139/62
[2017-09-01 04:00] VITALS: BP 149/78
[2017-09-01] MEDS: NovoLOG Insulin Flexpen SUBQ SCH ×4 (05:54→21:33)
[2017-09-01] MEDS: Heparin 5000 units/ml inj SUBQ SCH ×4 (05:54→21:36)
[2017-09-01 08:58] VITALS: BP 144/87
[2017-09-01 09:32] LABS: BASOPHILS % (AUTO) 1.5 % (0.0-2.0); EOSINOPHILS % (AUTO) 3.5 % (0.0-3.0); LYMPHOCYTES % (AUTO) 28.4 % (20.0-45.0); MEAN CORPUSCULAR HEMOGLOBIN 25.4 PG (27.0-31.0); MEAN CORPUSCULAR HGB CONC 30.8 G/DL (32.0-36.0); MEAN CORPUSCULAR VOLUME 83 FL (80-99); MONOCYTES % (AUTO) 19.6 % (1.0-10.0); PLATELET COUNT 230 K/UL (150-450); RED BLOOD COUNT 5.24 M/UL (4.70-6.10); RED CELL DISTRIBUTION WIDTH 16.9 % (11.6-14.8); WHITE BLOOD COUNT 4.8 K/UL (4.8-10.8)
[2017-09-01] MEDS: Aspirin Baby 81mg ORAL SCH (09:32)
[2017-09-01] MEDS: Metoprolol 25mg tab ORAL SCH ×2 (09:32→21:30)
[2017-09-01 09:58] LABS: ALANINE AMINOTRANSFERASE 25 U/L (12-78); ALBUMIN/GLOBULIN RATIO 0.5 (1.0-2.7); ANION GAP 8 mmol/L (5-15); ASPARTATE AMINO TRANSFERASE 36 U/L (15-37); CALCIUM 8.7 MG/DL (8.5-10.1); CARBON DIOXIDE 25 MMOL/L (21-32); CHLORIDE 104 MMOL/L (98-107); CREATININE 1.6 MG/DL (0.55-1.30); GLOMERULAR FILTRATION RATE 52.8 mL/min (>60); POTASSIUM 5.2 MMOL/L (3.5-5.1); SODIUM 137 MMOL/L (136-145)
--- NOTE | 2017-09-01 11:23 | Nephrology Progress Note ---
Assessment/Plan Problem List: (1) Azotemia (2) COPD (chronic obstructive pulmonary disease) (3) Diabetes mellitus (4) CHF (congestive heart failure) (5) Morbid obesity (6) ACS (acute coronary syndrome) Plan Continue current treatment plan Monitor lytes, correct prn Monitor renal function Renally dose meds, avoid nephrotoxins Cardio following Subjective Constitutional: Denies: no symptoms, chills, diaphoresis, fever, malaise, weakness, other HEENT: Denies: no symptoms, eye pain, blurred vision, tearing, double vision, ear pain, ear discharge, nose pain, nose congestion, throat pain, throat swelling, mouth pain, mouth swelling, other Genitourinary: Denies: no symptoms, burning, discharge, frequency, flank pain, hematuria, incontinence, pain, urgency, other Neurologic/Psychiatric: Denies: no symptoms, anxiety, depressed, emotional problems, headache, numbness, paresthesia, pre-existing deficit, seizure, tingling, tremors, weakness, other Subjective In bed, in no apparent distress, states that he feels better Objective Objective Last 24 Hour Vital Signs Date Time Temp Pulse Resp B/P (MAP) Pulse Ox O2 Delivery O2 Flow Rate FiO2 09/01/17 09:32 67 144/87 09/01/17 08:58 97.0 67 20 144/87 95 Nasal Cannula 2.0 09/01/17 08:00 67 09/01/17 07:35 Nasal Cannula 2.0 28 09/01/17 07:34 94 Nasal Cannula 2.0 28 09/01/17 07:33 66 16 Nasal Cannula 2.0 28 09/01/17 04:00 66 09/01/17 04:00 97.0 66 20 149/78 95 Nasal Cannula 2.0 09/01/17 00:27 97.3 66 23 139/62 98 Nasal Cannula 2.0 09/01/17 00:00 64 08/31/17 20:08 86 165/59 08/31/17 20:00 72 08/31/17 20:00 97.2 74 20 151/92 94 Nasal Cannula 2.0 08/31/17 19:30 94 Nasal Cannula 2.0 28 08/31/17 19:30 68 16 Nasal Cannula 2.0 28 08/31/17 19:30 Nasal Cannula 2.0 28 08/31/17 16:00 65 11/18/17 15:48 97.2 66 20 132/76 95 Room Air 08/31/17 12:00 67 08/31/17 11:45 97.3 66 20 137/79 98 Nasal Cannula 2.0 Intake and Output 09/01/17 09/02/17 19:00 07:00 Intake Total 120 ml Output Total 250 ml Balance -130 ml Intake Oral 120 ml Output Urine Total 250 ml # Bowel Movements 1 Laboratory Tests 08/31/17 14:10: Troponin I 0.201H 08/31/17 20:15: Troponin I 0.176H 09/01/17 00:55: Troponin I 0.176H 09/01/17 06:45: Troponin I 0.172H, White Blood Count 4.8, Red Blood Count 5.24, Hemoglobin 13.3L , Hematocrit 43.2, Mean Corpuscular Volume 83, Mean Corpuscular Hemoglobin 25.4L , Mean Corpuscular Hemoglobin Concent 30.8L, Red Cell Distribution Width 16.9H, Platelet Count 230, Mean Platelet Volume 6.0L, Neutrophils (%) (Auto) 47.0, Lymphocytes (%) (Auto) 28.4, Monocytes (%) (Auto) 19.6H, Eosinophils (%) (Auto) 3.5H, Basophils (%) (Auto) 1.5, Sodium Level 137, Potassium Level 5.2H, Chloride Level 104, Carbon Dioxide Level 25, Anion Gap 8, Blood Urea Nitrogen 43H, Creatinine 1.6H, Estimat Glomerular Filtration Rate 52.8, Glucose Level 108H, Calcium Level 8.7, Total Bilirubin 0.9, Aspartate Amino Transf (AST/SGOT) 36, Alanine Aminotransferase (ALT/SGPT) 25, Alkaline Phosphatase 181H, Total Protein 8.0, Albumin 2.6L, Globulin 5.4, Albumin/Globulin Ratio 0.5L Height (Feet): 5 Height (Inches): 6.00 Weight (Pounds): 271 General Appearance: no apparent distress, alert EENT: normal ENT inspection Neck: normal alignment Cardiovascular: regular rhythm, no JVD Abdomen: non tender, no organomegaly Extremities: non-tender Neurologic: alert, oriented x 3, responsive, normal mood/affect Helen Manjarrez N.P. Sep 01, 2017 11:23
--- NOTE | 2017-09-01 11:25 | Pulmonology Progress Note ---
Assessment/Plan Assessment/Plan ASSESSMENT Chest pain r/o ACS elevated troponin ( likely due to EMMANUEL) CHF with diastolic dysfunction EMMANUEL severe pulmonary HTN COPD /asthma DM morbid obesity PLAN OF CARE Tele serial troponin flat, per cardio -likely 2 to EMMANUEL stress test pending for Saturday cardio follows diuretic- Lasix IV, dose decreased monitor I/O, renal parameters, lytes, creat still elevated -1.6 ECHO with pEF 60-65% and RVSP of 73 c/w severe pulmonary HTN, along with severe TR Lipid panel stable on ASA, BB and statin Nitro prn BP management with BB angy adn Lasix , optimize further as needed O2 HHN prn no evidence of respiratory distress BS management with SS of insulin renal US negative DVT prophylaxis case discussed and evaluated by supervising physician Subjective Allergies: Coded Allergies: No Known Allergies (Unverified , 08/30/17) Subjective denies chest pain today troponin tending down + occasional SOB, hx of asthma, no wheezing, no cough Objective Last 24 Hour Vital Signs Date Time Temp Pulse Resp B/P (MAP) Pulse Ox O2 Delivery O2 Flow Rate FiO2 09/01/17 09:32 67 144/87 09/01/17 08:58 97.0 67 20 144/87 95 Nasal Cannula 2.0 09/01/17 08:00 67 09/01/17 07:35 Nasal Cannula 2.0 28 09/01/17 07:34 94 Nasal Cannula 2.0 28 09/01/17 07:33 66 16 Nasal Cannula 2.0 28 09/01/17 04:00 66 09/01/17 04:00 97.0 66 20 149/78 95 Nasal Cannula 2.0 09/01/17 00:27 97.3 66 23 139/62 98 Nasal Cannula 2.0 09/01/17 00:00 64 08/31/17 20:08 86 165/59 08/31/17 20:00 72 08/31/17 20:00 97.2 74 20 151/92 94 Nasal Cannula 2.0 08/31/17 19:30 94 Nasal Cannula 2.0 28 08/31/17 19:30 68 16 Nasal Cannula 2.0 28 08/31/17 19:30 Nasal Cannula 2.0 28 08/31/17 16:00 65 08/31/17 15:48 97.2 66 20 132/76 95 Room Air 08/31/17 12:00 67 08/31/17 11:45 97.3 66 20 137/79 98 Nasal Cannula 2.0 Intake and Output 09/01/17 09/02/17 19:00 07:00 Intake Total 120 ml Output Total 250 ml Balance -130 ml Intake Oral 120 ml Output Urine Total 250 ml # Bowel Movements 1 Objective General Appearance: no acute distress, other - obese AA male in NAD HEENT: normocephalic Respiratory/Chest: lungs clear, no respiratory distress, no accessory muscle use Cardiovascular: normal rate - SR on tele , regular rhythm Abdomen: normal bowel sounds, soft, non tender - obese Extremities: no edema, pedal pulses normal Neurologic/Psychiatric: no motor/sensory deficits, alert, oriented x 3, responsive, normal mood/affect Musculoskeletal: normal muscle bulk Microbiology Date/Time Source Procedure Growth Status 08/30/17 04:00 Nasal Nares MRSA Culture - Final Staphylococcus Aureus - Mrsa Complete 08/30/17 04:00 Rectum VRE Culture - Final NO VANCOMYCIN RESISTANT ENTEROCOCCUS ... Complete Laboratory Tests 08/31/17 14:10: Troponin I 0.201H 08/31/17 20:15: Troponin I 0.176H 09/01/17 00:55: Troponin I 0.176H 09/01/17 06:45: Troponin I 0.172H, White Blood Count 4.8, Red Blood Count 5.24, Hemoglobin 13.3L , Hematocrit 43.2, Mean Corpuscular Volume 83, Mean Corpuscular Hemoglobin 25.4L , Mean Corpuscular Hemoglobin Concent 30.8L, Red Cell Distribution Width 16.9H, Platelet Count 230, Mean Platelet Volume 6.0L, Neutrophils (%) (Auto) 47.0, Lymphocytes (%) (Auto) 28.4, Monocytes (%) (Auto) 19.6H, Eosinophils (%) (Auto) 3.5H, Basophils (%) (Auto) 1.5, Sodium Level 137, Potassium Level 5.2H, Chloride Level 104, Carbon Dioxide Level 25, Anion Gap 8, Blood Urea Nitrogen 43H, Creatinine 1.6H, Estimat Glomerular Filtration Rate 52.8, Glucose Level 108H, Calcium Level 8.7, Total Bilirubin 0.9, Aspartate Amino Transf (AST/SGOT) 36, Alanine Aminotransferase (ALT/SGPT) 25, Alkaline Phosphatase 181H, Total Protein 8.0, Albumin 2.6L, Globulin 5.4, Albumin/Globulin Ratio 0.5L Current Medications Medications (Trade) Dose Ordered Sig/Kalin Route PRN Reason Start Time Stop Time Status Last Admin Dose Admin Acetaminophen (Tylenol) 650 mg Q6H PRN ORAL Mild Pain/Temp > 100.5 08/30/17 06:30 09/29/17 06:29 08/30/17 14:07 Acetaminophen/ Hydrocodone Bitart ([place] 5/325) 1 tab Q6H PRN ORAL PAIN 4-10 08/30/17 18:15 09/06/17 18:14 Albuterol/ Ipratropium (Albuterol/ Ipratropium) 3 ml Q4H PRN HHN Shortness of Breath 08/30/17 06:15 09/04/17 06:14 Aspirin (ASA) 81 mg DAILY ORAL 08/30/17 09:00 09/29/17 08:59 09/01/17 09:32 Atorvastatin Calcium (Lipitor) 10 mg BEDTIME ORAL 08/30/17 21:00 09/29/17 20:59 08/31/17 20:07 Dextrose (Dextrose 50%) STAT PRN IV Hypoglycemia 08/30/17 12:15 09/29/17 12:14 Furosemide (Lasix) 40 mg DAILY IV 09/01/17 09:00 10/01/17 08:59 09/01/17 09:32 Heparin Sodium (Porcine) (Heparin 5000 units/ml) 5,000 units EVERY 8 HOURS SUBQ 08/30/17 14:00 09/29/17 13:59 08/31/17 14:39 Insulin Aspart (NovoLOG) BEFORE MEALS AND HS SUBQ 08/30/17 16:30 09/29/17 16:29 08/31/17 20:10 Metoprolol Tartrate (Lopressor) 25 mg EVERY 12 HOURS ORAL 08/30/17 21:00 09/29/17 20:59 09/01/17 09:32 Nitroglycerin (Ntg) 0.4 mg Q5MIN X 3 DOSES PRN SL Prn Chest Pain 08/30/17 14:45 09/29/17 14:44 Ondansetron HCl (Zofran) 4 mg Q6H PRN IVP Nausea & Vomiting 08/30/17 06:15 09/29/17 06:14 Promethazine HCl/ Codeine (Phenergan with Codeine) 5 ml Q4H PRN ORAL For Cough 08/30/17 12:15 09/29/17 12:14 Simethicone (Mylicon) 80 mg QIDPRN PRN ORAL GAS 08/31/17 14:30 09/30/17 14:29 [facility]ink[facility]Bro[facility] CenterCarlyn Schneider NP Sep 01, 2017 11:25
[2017-09-01 11:55] VITALS: BP 148/89
--- NOTE | 2017-09-01 12:37 | Cardiology Report ---
APPROVED REPORT EXAM: Two-dimensional and M-mode echocardiogram with Doppler and color Doppler. INDICATION Congestive Heart Failure M-Mode DIMENSIONS IVSd0.9 (0.7-1.1cm)Left Atrium (MM)3.5 (1.6-4.0cm) LVDd3.0 (3.5-5.6cm)Aortic Root3.2 (2.0-3.7cm) PWd1.5 (0.7-1.1cm)Aortic Cusp Exc.1.9 (1.5-2.0cm) IVSs1.3 cm LVDs2.1 (2.5-4.0cm) PWs1.7 cm Technically difficult study due to poor acoustical windows. Normal left ventricular chamber size, systolic function and wall motion. Left ventricular ejection fraction estimated to be 60-65%. No evidence of left ventricular hypertrophy. No evidence of pericardial or pleural effusion. Left cardiac chamber sizes are within normal limits. Severe right atrial enlargement by 2D. Mild right ventricular enlargement by 2D. D-shape is seen in short axis, indicating volume overload in right ventricle. Focal aortic valve sclerosis with adequate cusp excursion. Normal mitral valve leaflets with normal excursion. Normal mitral annulus and aortic root. Pulmonic valve is well visualized. Normal tricuspid valve structure. IVC is normal in size and collapsible with respiration. IVC dilated at 3.0 cm non-collapsible with respiration indicate increased RA pressure. RA of 20mmHg. A color flow and spectral Doppler study was performed and revealed: No aortic regurgitation. No mitral regurgitation. Mitral diastolic velocities suggest reduced left ventricular relaxation c/w diastolic dysfunction grade 1. Severe tricuspid regurgitation. Tricuspid systolic velocities suggests peak right ventricular systolic pressure of 73mmHg Consistent with severe pulmonary hypertension. Pulmonic regurgitation present.
--- NOTE | 2017-09-01 14:46 | Internal Med Progress Note ---
Subjective Physician Name Enrique Love Attending Physician Enrique Love MD Current Medications Medications (Trade) Dose Ordered Sig/Kalin Route PRN Reason Start Time Stop Time Status Last Admin Dose Admin Acetaminophen (Tylenol) 650 mg Q6H PRN ORAL Mild Pain/Temp > 100.5 08/30/17 06:30 09/29/17 06:29 08/30/17 14:07 Acetaminophen/ Hydrocodone Bitart ([place] 5/325) 1 tab Q6H PRN ORAL PAIN 4-10 08/30/17 18:15 09/06/17 18:14 Albuterol/ Ipratropium (Albuterol/ Ipratropium) 3 ml Q4H PRN HHN Shortness of Breath 08/30/17 06:15 09/04/17 06:14 Aspirin (ASA) 81 mg DAILY ORAL 08/30/17 09:00 09/29/17 08:59 09/01/17 09:32 Atorvastatin Calcium (Lipitor) 10 mg BEDTIME ORAL 08/30/17 21:00 09/29/17 20:59 08/31/17 20:07 Dextrose (Dextrose 50%) STAT PRN IV Hypoglycemia 08/30/17 12:15 09/29/17 12:14 Furosemide (Lasix) 40 mg DAILY IV 09/01/17 09:00 10/01/17 08:59 09/01/17 09:32 Heparin Sodium (Porcine) (Heparin 5000 units/ml) 5,000 units EVERY 8 HOURS SUBQ 08/30/17 14:00 09/29/17 13:59 08/31/17 14:39 Insulin Aspart (NovoLOG) BEFORE MEALS AND HS SUBQ 08/30/17 16:30 09/29/17 16:29 09/01/17 12:46 Metoprolol Tartrate (Lopressor) 25 mg EVERY 12 HOURS ORAL 08/30/17 21:00 09/29/17 20:59 09/01/17 09:32 Nitroglycerin (Ntg) 0.4 mg Q5MIN X 3 DOSES PRN SL Prn Chest Pain 08/30/17 14:45 09/29/17 14:44 Ondansetron HCl (Zofran) 4 mg Q6H PRN IVP Nausea & Vomiting 08/30/17 06:15 09/29/17 06:14 Promethazine HCl/ Codeine (Phenergan with Codeine) 5 ml Q4H PRN ORAL For Cough 08/30/17 12:15 09/29/17 12:14 Simethicone (Mylicon) 80 mg QIDPRN PRN ORAL GAS 08/31/17 14:30 09/30/17 14:29 Allergies: Coded Allergies: No Known Allergies (Unverified , 08/30/17) Subjective awake, alert, responsive, Less SOB, No CP, feeling"better" Objective Last Vital Signs Date Time Temp Pulse Resp B/P (MAP) Pulse Ox O2 Delivery O2 Flow Rate FiO2 09/01/17 12:00 65 09/01/17 11:55 97.0 20 148/89 95 Nasal Cannula 2.0 09/01/17 07:35 28 Laboratory Tests Test 08/31/17 20:15 09/01/17 00:55 09/01/17 06:45 09/01/17 14:00 Troponin I 0.176 ng/mL (0.000-0.056) 0.176 ng/mL (0.000-0.056) 0.172 ng/mL (0.000-0.056) Pending White Blood Count 4.8 K/UL (4.8-10.8) Red Blood Count 5.24 M/UL (4.70-6.10) Hemoglobin 13.3 G/DL (14.2-18.0) L Hematocrit 43.2 % (42.0-52.0) Mean Corpuscular Volume 83 FL (80-99) Mean Corpuscular Hemoglobin 25.4 PG (27.0-31.0) L Mean Corpuscular Hemoglobin Concent 30.8 G/DL (32.0-36.0) L Red Cell Distribution Width 16.9 % (11.6-14.8) H Platelet Count 230 K/UL (150-450) Mean Platelet Volume 6.0 FL (6.5-10.1) L Neutrophils (%) (Auto) 47.0 % (45.0-75.0) Lymphocytes (%) (Auto) 28.4 % (20.0-45.0) Monocytes (%) (Auto) 19.6 % (1.0-10.0) H Eosinophils (%) (Auto) 3.5 % (0.0-3.0) H Basophils (%) (Auto) 1.5 % (0.0-2.0) Sodium Level 137 MMOL/L (136-145) Potassium Level 5.2 MMOL/L (3.5-5.1) H Chloride Level 104 MMOL/L (98-107) Carbon Dioxide Level 25 MMOL/L (21-32) Anion Gap 8 mmol/L (5-15) Blood Urea Nitrogen 43 mg/dL (7-18) H Creatinine 1.6 MG/DL (0.55-1.30) H Estimat Glomerular Filtration Rate 52.8 mL/min (>60) Glucose Level 108 MG/DL (74-106) H Calcium Level 8.7 MG/DL (8.5-10.1) Total Bilirubin 0.9 MG/DL (0.2-1.0) Aspartate Amino Transf (AST/SGOT) 36 U/L (15-37) Alanine Aminotransferase (ALT/SGPT) 25 U/L (12-78) Alkaline Phosphatase 181 U/L (46-116) H Total Protein 8.0 G/DL (6.4-8.2) Albumin 2.6 G/DL (3.4-5.0) L Globulin 5.4 g/dL Albumin/Globulin Ratio 0.5 (1.0-2.7) L Microbiology Date/Time Source Procedure Growth Status 08/30/17 04:00 Nasal Nares MRSA Culture - Final Staphylococcus Aureus - Mrsa Complete 08/30/17 04:00 Rectum VRE Culture - Final NO VANCOMYCIN RESISTANT ENTEROCOCCUS ... Complete Intake and Output 09/01/17 09/02/17 19:00 07:00 Intake Total 360 ml Output Total 730 ml Balance -370 ml Intake Oral 360 ml Output Urine Total 730 ml # Voids 2 # Bowel Movements 1 Objective GENERAL: The patient is awake, responsive, and in no acute distress. HEAD AND NECK: Pupils are equal and reactive to light. Extraocular muscles are intact. NECK: Supple. Positive JVD. LUNGS: Good air entry. No wheezing or rales. Decreased air in the bases. HEART: Reveals S1 and S2. Distant heart sounds. No murmur. ABDOMEN: Soft, nondistended, and nontender. Morbidly obese. EXTREMITIES: A +1 edema in bilateral lower extremity with hyperpigmentation of bilateral lower extremities. No cyanosis or clubbing. 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 NEUROLOGIC: Cranial nerves II through XII are grossly intact. Motor is 5/5 in all extremities. Assessment/Plan Assessment/Plan ASSESSMENT: 1. Acute congestive heart failure exacerbation on chronic, possible diastolic dysfunction. 2. Chronic obstructive pulmonary disease. 3. Chronic hypoxemia, oxygen-dependent. 4. Chest pain, possible acute coronary syndrome. 5. Hyperkalemia. 6. Morbid obesity. 7. Diabetes type 2. 8. Hypertension. 9. EMMANUEL on CKD. PLAN: On telemetry. Monitor laboratory and 2D echo. Dr. Wei Prabhakar from Cardiology and Dr. Bella Carrington from Pulmonary Critical Care. Accu-Chek with sliding scale. Lasix IV waiting for stress test in AM DC planning for AM, Home with HH, refused SNF placement. Enrique Love MD Sep 01, 2017 14:46
[2017-09-01 15:57] VITALS: BP 140/82
[2017-09-01 20:00] VITALS: BP 147/77
[2017-09-02] VITALS: BP 137/85
[2017-09-02 04:17] VITALS: BP 150/83
[2017-09-02] MEDS: Heparin 5000 units/ml inj SUBQ SCH ×3 (06:00→22:00)
[2017-09-02] MEDS: NovoLOG Insulin Flexpen SUBQ SCH ×4 (06:31→21:15)
[2017-09-02 07:14] LABS: BASOPHILS % (AUTO) 1.7 % (0.0-2.0); EOSINOPHILS % (AUTO) 3.2 % (0.0-3.0); LYMPHOCYTES % (AUTO) 31.1 % (20.0-45.0); MEAN CORPUSCULAR HEMOGLOBIN 25.2 PG (27.0-31.0); MEAN CORPUSCULAR HGB CONC 30.9 G/DL (32.0-36.0); MEAN CORPUSCULAR VOLUME 81 FL (80-99); MEAN PLATELET VOLUME 6.3 FL (6.5-10.1); MONOCYTES % (AUTO) 17.9 % (1.0-10.0); NEUTROPHILS % (AUTO) 46.2 % (45.0-75.0); PLATELET COUNT 240 K/UL (150-450); RED BLOOD COUNT 5.76 M/UL (4.70-6.10); WHITE BLOOD COUNT 4.8 K/UL (4.8-10.8)
[2017-09-02 07:41] LABS: ANION GAP 5 mmol/L (5-15); CALCIUM 8.7 MG/DL (8.5-10.1); CARBON DIOXIDE 27 MMOL/L (21-32); CHLORIDE 104 MMOL/L (98-107); CREATININE 1.6 MG/DL (0.55-1.30); GLOMERULAR FILTRATION RATE 52.8 mL/min (>60); POTASSIUM 5.3 MMOL/L (3.5-5.1); SODIUM 136 MMOL/L (136-145)
[2017-09-02 08:14] VITALS: BP 157/97
[2017-09-02] MEDS: Metoprolol 25mg tab ORAL SCH ×2 (09:00→21:16)
[2017-09-02] MEDS: Aspirin Baby 81mg ORAL SCH (09:16)
[2017-09-02 12:33] VITALS: BP 153/91
--- NOTE | 2017-09-02 13:35 | Pulmonology Progress Note ---
Assessment/Plan Problems: (1) ACS (acute coronary syndrome) (2) CHF (congestive heart failure) (3) ATN (acute tubular necrosis) (4) Diabetes mellitus (5) COPD (chronic obstructive pulmonary disease) Assessment/Plan stress test in process troponin still positive symptomatic treatment respiratory treatment. Subjective ROS Limited/Unobtainable: No HEENT: Repors: no symptoms Respiratory: Reports: no symptoms Allergies: Coded Allergies: No Known Allergies (Unverified , 08/30/17) Objective Last 24 Hour Vital Signs Date Time Temp Pulse Resp B/P (MAP) Pulse Ox O2 Delivery O2 Flow Rate FiO2 09/02/17 12:33 97.7 67 20 153/91 96 Nasal Cannula 2.0 09/02/17 09:00 63 157/97 09/02/17 08:14 97.0 63 20 157/97 95 Nasal Cannula 2.0 09/02/17 08:00 63 09/02/17 07:50 63 18 Nasal Cannula 2.0 28 09/02/17 07:50 94 Nasal Cannula 2.0 28 09/02/17 07:50 Nasal Cannula 2.0 28 09/02/17 04:17 97.3 62 21 150/83 97 Nasal Cannula 3.0 09/02/17 04:00 62 09/02/17 00:00 97.7 60 21 137/85 96 Nasal Cannula 3.0 09/02/17 00:00 61 09/01/17 21:30 66 147/77 09/01/17 20:00 97.0 66 23 147/77 98 Nasal Cannula 2.0 09/01/17 20:00 66 09/01/17 19:30 97 Nasal Cannula 2.0 28 09/01/17 19:30 62 16 Nasal Cannula 2.0 28 09/01/17 19:30 Nasal Cannula 2.0 28 09/01/17 16:00 67 09/01/17 15:57 97.2 66 20 140/82 94 Nasal Cannula 2.0 Intake and Output 09/02/17 09/03/17 19:00 07:00 Output Total 900 ml Balance -900 ml Output Urine Total 900 ml # Bowel Movements 2 General Appearance: WD/WN HEENT: normocephalic, atraumatic Respiratory/Chest: chest wall non-tender, lungs clear Cardiovascular: normal peripheral pulses, normal rate Abdomen: normal bowel sounds, soft, non tender Genitourinary: normal external genitalia Skin: no rash 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 Laboratory Tests 09/01/17 14:00: Troponin I 0.172H 09/01/17 19:16: Troponin I 0.184H 09/02/17 00:55: Troponin I 0.157H 09/02/17 06:55: Troponin I 0.163H, White Blood Count 4.8, Red Blood Count 5.76, Hemoglobin 14.5 , Hematocrit 46.9, Mean Corpuscular Volume 81, Mean Corpuscular Hemoglobin 25.2L , Mean Corpuscular Hemoglobin Concent 30.9L, Red Cell Distribution Width 17.0H, Platelet Count 240, Mean Platelet Volume 6.3L, Neutrophils (%) (Auto) 46.2, Lymphocytes (%) (Auto) 31.1, Monocytes (%) (Auto) 17.9H, Eosinophils (%) (Auto) 3.2H, Basophils (%) (Auto) 1.7, Sodium Level 136, Potassium Level 5.3H, Chloride Level 104, Carbon Dioxide Level 27, Anion Gap 5, Blood Urea Nitrogen 46H, Creatinine 1.6H, Estimat Glomerular Filtration Rate 52.8, Glucose Level 133H, Calcium Level 8.7 09/02/17 12:45: Troponin I 0.186H Current Medications Medications (Trade) Dose Ordered Sig/Kalin Route PRN Reason Start Time Stop Time Status Last Admin Dose Admin Acetaminophen (Tylenol) 650 mg Q6H PRN ORAL Mild Pain/Temp > 100.5 08/30/17 06:30 09/29/17 06:29 08/30/17 14:07 Acetaminophen/ Hydrocodone Bitart ([place] 5/325) 1 tab Q6H PRN ORAL PAIN 4-10 08/30/17 18:15 09/06/17 18:14 Albuterol/ Ipratropium (Albuterol/ Ipratropium) 3 ml Q4H PRN HHN Shortness of Breath 08/30/17 06:15 09/04/17 06:14 Aspirin (ASA) 81 mg DAILY ORAL 08/30/17 09:00 09/29/17 08:59 09/02/17 09:16 Atorvastatin Calcium (Lipitor) 10 mg BEDTIME ORAL 08/30/17 21:00 09/29/17 20:59 09/01/17 21:30 Dextrose (Dextrose 50%) STAT PRN IV Hypoglycemia 08/30/17 12:15 09/29/17 12:14 Furosemide (Lasix) 40 mg DAILY IV 09/01/17 09:00 10/01/17 08:59 09/02/17 09:15 Heparin Sodium (Porcine) (Heparin 5000 units/ml) 5,000 units EVERY 8 HOURS SUBQ 08/30/17 14:00 09/29/17 13:59 08/31/17 14:39 Insulin Aspart (NovoLOG) BEFORE MEALS AND HS SUBQ 08/30/17 16:30 09/29/17 16:29 09/02/17 06:31 Metoprolol Tartrate (Lopressor) 25 mg EVERY 12 HOURS ORAL 08/30/17 21:00 09/29/17 20:59 09/01/17 21:30 Nitroglycerin (Ntg) 0.4 mg Q5MIN X 3 DOSES PRN SL Prn Chest Pain 08/30/17 14:45 09/29/17 14:44 Ondansetron HCl (Zofran) 4 mg Q6H PRN IVP Nausea & Vomiting 08/30/17 06:15 09/29/17 06:14 Promethazine HCl/ Codeine (Phenergan with Codeine) 5 ml Q4H PRN ORAL For Cough 08/30/17 12:15 09/29/17 12:14 Simethicone (Mylicon) 80 mg QIDPRN PRN ORAL GAS 08/31/17 14:30 09/30/17 14:29 RIVERA HUMPHRIES Sep 02, 2017 13:35
--- NOTE | 2017-09-02 13:48 | Cardiac Electrophysiology PN ---
Assessment/Plan Assessment/Plan 1. Chest pain and elevated troponin. 6 Troponins are flat and likely due to renal failure as creatinine is 1.7. Continue the patient on aspirin, beta-angy, and statin. Nuclear stress test today by Dr Bellamy pending. 2. Congestive heart failure. Echocardiogram. EF 65%. On Lasix 40 mg IV daily 3. Chronic obstructive pulmonary disease. 4. Hypertension. Continue current heart failure therapy. 5. Diabetes. 6. Renal failure with azotemia. On Lasix 40 iv daily DW RN, Dr Bellamy and Dr Carrington Subjective Subjective Feeling better with Lasix. RN at bedside. Awaiting stress test today by Dr Bellamy. Objective Last 24 Hour Vital Signs Date Time Temp Pulse Resp B/P (MAP) Pulse Ox O2 Delivery O2 Flow Rate FiO2 09/02/17 12:33 97.7 67 20 153/91 96 Nasal Cannula 2.0 09/02/17 09:00 63 157/97 09/02/17 08:14 97.0 63 20 157/97 95 Nasal Cannula 2.0 09/02/17 08:00 63 09/02/17 07:50 63 18 Nasal Cannula 2.0 28 09/02/17 07:50 94 Nasal Cannula 2.0 28 09/02/17 07:50 Nasal Cannula 2.0 28 09/02/17 04:17 97.3 62 21 150/83 97 Nasal Cannula 3.0 09/02/17 04:00 62 09/02/17 00:00 97.7 60 21 137/85 96 Nasal Cannula 3.0 09/02/17 00:00 61 09/01/17 21:30 66 147/77 09/01/17 20:00 97.0 66 23 147/77 98 Nasal Cannula 2.0 09/01/17 20:00 66 09/01/17 19:30 97 Nasal Cannula 2.0 28 09/01/17 19:30 62 16 Nasal Cannula 2.0 28 09/01/17 19:30 Nasal Cannula 2.0 28 09/01/17 16:00 67 09/01/17 15:57 97.2 66 20 140/82 94 Nasal Cannula 2.0 Intake and Output 09/02/17 09/03/17 19:00 07:00 Output Total 900 ml Balance -900 ml Output Urine Total 900 ml # Bowel Movements 2 Laboratory Tests Test 09/01/17 14:00 09/01/17 19:16 09/02/17 00:55 09/02/17 06:55 Troponin I 0.172 ng/mL (0.000-0.056) 0.184 ng/mL (0.000-0.056) 0.157 ng/mL (0.000-0.056) 0.163 ng/mL (0.000-0.056) White Blood Count 4.8 K/UL (4.8-10.8) Red Blood Count 5.76 M/UL (4.70-6.10) Hemoglobin 14.5 G/DL (14.2-18.0) Hematocrit 46.9 % (42.0-52.0) Mean Corpuscular Volume 81 FL (80-99) Mean Corpuscular Hemoglobin 25.2 PG (27.0-31.0) L Mean Corpuscular Hemoglobin Concent 30.9 G/DL (32.0-36.0) L Red Cell Distribution Width 17.0 % (11.6-14.8) H Platelet Count 240 K/UL (150-450) Mean Platelet Volume 6.3 FL (6.5-10.1) L Neutrophils (%) (Auto) 46.2 % (45.0-75.0) Lymphocytes (%) (Auto) 31.1 % (20.0-45.0) Monocytes (%) (Auto) 17.9 % (1.0-10.0) H Eosinophils (%) (Auto) 3.2 % (0.0-3.0) H Basophils (%) (Auto) 1.7 % (0.0-2.0) Sodium Level 136 MMOL/L (136-145) Potassium Level 5.3 MMOL/L (3.5-5.1) H Chloride Level 104 MMOL/L (98-107) Carbon Dioxide Level 27 MMOL/L (21-32) Anion Gap 5 mmol/L (5-15) Blood Urea Nitrogen 46 mg/dL (7-18) H Creatinine 1.6 MG/DL (0.55-1.30) H Estimat Glomerular Filtration Rate 52.8 mL/min (>60) Glucose Level 133 MG/DL (74-106) H Calcium Level 8.7 MG/DL (8.5-10.1) Test 09/02/17 12:45 Troponin I 0.186 ng/mL (0.000-0.056) Objective HEAD AND NECK: Shows no JVD. LUNGS: Clear. CARDIOVASCULAR: Shows regular S1 and S2 with no gallop or murmur. ABDOMEN: Soft. EXTREMITIES: 1+ pitting edema.Chronic skin changes GWENDOLYN LAL Sep 02, 2017 13:48
[2017-09-02] MEDS ORDERED: Lexiscan 0.4mg/5ml syringe IV ONE (14:30)
[2017-09-02 16:23] VITALS: BP 157/93
--- NOTE | 2017-09-02 17:20 | Diagnostic Imaging Report ---
Indications: Chest pain, congestive heart the Technique: Single day single isotope protocol utilized. Initially, resting images obtained using IV administration 10 millicuries 99M technetium Myoview. Subsequently, patient underwent Aruna stress testing. See cardiology report for details. During DEXA scan infusion, IV administration 31.8 mCi 99 M technetium Myoview. SPECT and planar images obtained. SPECT images gated to 8 phases of the cardiac cycle were also obtained, and reformatted into cine images for evaluation of ejection fraction. Comparison: None near the apex. No reversible perfusion defects are demonstrated. Findings: Presence or absence of symptoms during infusion is not reported in the available cardiology report. Per cardiology report, resting EKG demonstrates normal sinus rhythm. Presence or absence of ST changes is not reported in the available cardiology report. Imaging demonstrates a fixed perfusion defect in the anteroseptal wall. Calculated post stress ejection fraction 63%. No focal wall motion abnormality demonstrated Impression: Nonischemic clinical response to pharmacologic stress, per cardiology report Nonischemic electrocardiographic response to pharmacologic stress, per cardiology report Fixed anteroseptal defect near the apex, consistent with infarct. Negative for ischemia, at level of stress achieved Calculated post stress ejection fraction 63%
--- NOTE | 2017-09-02 18:58 | Internal Med Progress Note ---
Subjective Date of Service: Sep 02, 2017 Physician Name Elayne Han Attending Physician Enrique Love MD Current Medications Medications (Trade) Dose Ordered Sig/Kalin Route PRN Reason Start Time Stop Time Status Last Admin Dose Admin Acetaminophen (Tylenol) 650 mg Q6H PRN ORAL Mild Pain/Temp > 100.5 08/30/17 06:30 09/29/17 06:29 08/30/17 14:07 Acetaminophen/ Hydrocodone Bitart ([place] 5/325) 1 tab Q6H PRN ORAL PAIN 4-10 08/30/17 18:15 09/06/17 18:14 Albuterol/ Ipratropium (Albuterol/ Ipratropium) 3 ml Q4H PRN HHN Shortness of Breath 08/30/17 06:15 09/04/17 06:14 Aspirin (ASA) 81 mg DAILY ORAL 08/30/17 09:00 09/29/17 08:59 09/02/17 09:16 Atorvastatin Calcium (Lipitor) 10 mg BEDTIME ORAL 08/30/17 21:00 09/29/17 20:59 09/01/17 21:30 Dextrose (Dextrose 50%) STAT PRN IV Hypoglycemia 08/30/17 12:15 09/29/17 12:14 Furosemide (Lasix) 40 mg DAILY IV 09/01/17 09:00 10/01/17 08:59 09/02/17 09:15 Heparin Sodium (Porcine) (Heparin 5000 units/ml) 5,000 units EVERY 8 HOURS SUBQ 08/30/17 14:00 09/29/17 13:59 08/31/17 14:39 Insulin Aspart (NovoLOG) BEFORE MEALS AND HS SUBQ 08/30/17 16:30 09/29/17 16:29 09/02/17 17:18 Metoprolol Tartrate (Lopressor) 25 mg EVERY 12 HOURS ORAL 08/30/17 21:00 09/29/17 20:59 09/01/17 21:30 Nitroglycerin (Ntg) 0.4 mg Q5MIN X 3 DOSES PRN SL Prn Chest Pain 08/30/17 14:45 09/29/17 14:44 Ondansetron HCl (Zofran) 4 mg Q6H PRN IVP Nausea & Vomiting 08/30/17 06:15 09/29/17 06:14 Promethazine HCl/ Codeine (Phenergan with Codeine) 5 ml Q4H PRN ORAL For Cough 08/30/17 12:15 09/29/17 12:14 Simethicone (Mylicon) 80 mg QIDPRN PRN ORAL GAS 08/31/17 14:30 09/30/17 14:29 Allergies: Coded Allergies: No Known Allergies (Unverified , 08/30/17) ROS Limited/Unobtainable: No Constitutional: Reports: no symptoms HEENT: Reports: no symptoms Cardiovascular: Reports: no symptoms Respiratory: Reports: no symptoms Gastrointestinal/Abdominal: Reports: no symptoms Genitourinary: Reports: no symptoms Neurologic/Psychiatric: Reports: no symptoms Subjective 66 YO M admitted with chest pain. Now congestive heart failure exacerbation. Await cardiolite stress test results. Cover for Int Sam-Dr Love. Objective Last Vital Signs Date Time Temp Pulse Resp B/P (MAP) Pulse Ox O2 Delivery O2 Flow Rate FiO2 09/02/17 16:23 98.2 79 20 157/93 95 Nasal Cannula 2.0 09/02/17 07:50 28 Laboratory Tests Test 09/01/17 19:16 09/02/17 00:55 09/02/17 06:55 09/02/17 12:45 Troponin I 0.184 ng/mL (0.000-0.056) 0.157 ng/mL (0.000-0.056) 0.163 ng/mL (0.000-0.056) 0.186 ng/mL (0.000-0.056) White Blood Count 4.8 K/UL (4.8-10.8) Red Blood Count 5.76 M/UL (4.70-6.10) Hemoglobin 14.5 G/DL (14.2-18.0) Hematocrit 46.9 % (42.0-52.0) Mean Corpuscular Volume 81 FL (80-99) Mean Corpuscular Hemoglobin 25.2 PG (27.0-31.0) L Mean Corpuscular Hemoglobin Concent 30.9 G/DL (32.0-36.0) L Red Cell Distribution Width 17.0 % (11.6-14.8) H Platelet Count 240 K/UL (150-450) Mean Platelet Volume 6.3 FL (6.5-10.1) L Neutrophils (%) (Auto) 46.2 % (45.0-75.0) Lymphocytes (%) (Auto) 31.1 % (20.0-45.0) Monocytes (%) (Auto) 17.9 % (1.0-10.0) H Eosinophils (%) (Auto) 3.2 % (0.0-3.0) H Basophils (%) (Auto) 1.7 % (0.0-2.0) Sodium Level 136 MMOL/L (136-145) Potassium Level 5.3 MMOL/L (3.5-5.1) H Chloride Level 104 MMOL/L (98-107) Carbon Dioxide Level 27 MMOL/L (21-32) Anion Gap 5 mmol/L (5-15) Blood Urea Nitrogen 46 mg/dL (7-18) H Creatinine 1.6 MG/DL (0.55-1.30) H Estimat Glomerular Filtration Rate 52.8 mL/min (>60) Glucose Level 133 MG/DL (74-106) H Calcium Level 8.7 MG/DL (8.5-10.1) Intake and Output 09/02/17 09/03/17 19:00 07:00 Intake Total 240 ml Output Total 1600 ml Balance -1360 ml Intake Oral 240 ml Output Urine Total 1600 ml # Bowel Movements 3 Objective Objective GENERAL: The patient is awake, responsive, and in no acute distress. HEAD AND NECK: Pupils are equal and reactive to light. Extraocular muscles are intact. NECK: Supple. Positive JVD. LUNGS: Good air entry. No wheezing or rales. Decreased air in the bases. HEART: Reveals S1 and S2. Distant heart sounds. No murmur. ABDOMEN: Soft, nondistended, and nontender. Morbidly obese. EXTREMITIES: A +1 edema in bilateral lower extremity with hyperpigmentation of bilateral lower extremities. No cyanosis or clubbing. 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 NEUROLOGIC: Cranial nerves II through XII are grossly intact. Motor is 5/5 in all extremities. Assessment/Plan Problem List: (1) HTN (hypertension) Assessment & Plan: Continue lopressor (2) Renal failure Assessment & Plan: See nephrology note. (3) Chest pain Assessment & Plan: Await nuclear cardiac stress test result. See Cardiology note. (4) COPD (chronic obstructive pulmonary disease) (5) CHF (congestive heart failure) (6) Diabetes mellitus Assessment & Plan: Continue novolog sliding scale. (7) Morbid obesity Status: progressing ELAYNE HAN Sep 02, 2017 18:58
[2017-09-02 20:05] VITALS: BP 165/91
[2017-09-03 00:01] VITALS: BP 133/76
[2017-09-03 04:30] VITALS: BP 150/89
[2017-09-03 05:23] VITALS: BP 150/89
[2017-09-03] MEDS: Heparin 5000 units/ml inj SUBQ SCH (06:00)
[2017-09-03] MEDS: NovoLOG Insulin Flexpen SUBQ SCH ×2 (06:26→11:30)
[2017-09-03 08:00] VITALS: BP 156/94
[2017-09-03] MEDS: Metoprolol 25mg tab ORAL SCH (08:25)
[2017-09-03] MEDS: Aspirin Baby 81mg ORAL SCH (08:26)
--- NOTE | 2017-09-03 08:47 | Cardiac Electrophysiology PN ---
Assessment/Plan Assessment/Plan 1. Chest pain and elevated troponin. 6 Troponins are flat and likely due to renal failure as creatinine is 1.7. Continue the patient on aspirin, beta-angy, and statin. Nuclear stress test showed old infarct with no ischemia. 2. Congestive heart failure. Echocardiogram. EF 65%. Change Lasix to 40 mg po daily 3. Chronic obstructive pulmonary disease. 4. Hypertension. Continue current heart failure therapy. 5. Diabetes. 6. Renal failure with azotemia. On Lasix 40 iv daily DW RN, [place] to DC Subjective Subjective Still on iv Lasix. Stress test was negative.RN at bedside. Objective Last 24 Hour Vital Signs Date Time Temp Pulse Resp B/P (MAP) Pulse Ox O2 Delivery O2 Flow Rate FiO2 09/03/17 08:25 64 156/94 09/03/17 08:00 96.3 64 19 156/94 93 Nasal Cannula 2.0 09/03/17 05:23 97.3 67 20 150/89 94 Nasal Cannula 2.0 09/03/17 04:30 97.3 67 20 150/89 94 Nasal Cannula 2.0 09/03/17 04:00 65 09/03/17 00:04 95 18 Nasal Cannula 2.0 28 09/03/17 00:04 93 Nasal Cannula 2.0 28 09/03/17 00:04 Nasal Cannula 2.0 28 09/03/17 00:01 97.7 60 20 133/76 97 Room Air 09/03/17 00:00 61 09/02/17 21:16 99 160/78 09/02/17 20:05 97.2 71 20 165/91 98 Nasal Cannula 2.0 09/02/17 20:00 70 09/02/17 16:23 98.2 79 20 157/93 95 Nasal Cannula 2.0 09/02/17 16:00 77 09/02/17 12:33 97.7 67 20 153/91 96 Nasal Cannula 2.0 09/02/17 12:00 65 09/02/17 09:00 63 157/97 Laboratory Tests Test 09/02/17 12:45 09/02/17 19:05 Troponin I 0.186 ng/mL (0.000-0.056) 0.166 ng/mL (0.000-0.056) Objective HEAD AND NECK: Shows no JVD. LUNGS: Clear. CARDIOVASCULAR: Shows regular S1 and S2 with no gallop or murmur. ABDOMEN: Soft. EXTREMITIES: 1+ pitting edema.Chronic skin changes GWENDOLYN LAL Sep 03, 2017 08:47
[2017-09-03] MEDS ORDERED: FUROSEMIDE40 MG ORAL (10:28)
[2017-09-03 12:00] VITALS: BP 135/80
--- NOTE | 2017-09-03 12:19 | Pulmonology Progress Note ---
Assessment/Plan Problems: (1) ACS (acute coronary syndrome) (2) CHF (congestive heart failure) (3) ATN (acute tubular necrosis) (4) Diabetes mellitus (5) COPD (chronic obstructive pulmonary disease) Assessment/Plan stress test ws negative troponin still positive symptomatic treatment on lasix respiratory treatment. ok to dc with close f/u with primary Subjective ROS Limited/Unobtainable: No Constitutional: Reports: no symptoms HEENT: Repors: no symptoms Respiratory: Reports: no symptoms Allergies: Coded Allergies: No Known Allergies (Unverified , 08/30/17) Objective Last 24 Hour Vital Signs Date Time Temp Pulse Resp B/P (MAP) Pulse Ox O2 Delivery O2 Flow Rate FiO2 09/03/17 12:00 97.5 63 18 135/80 91 Room Air 09/03/17 08:25 64 156/94 09/03/17 08:00 65 09/03/17 08:00 96.3 64 19 156/94 93 Nasal Cannula 2.0 09/03/17 07:56 Room Air 09/03/17 07:55 65 18 Room Air 21 09/03/17 07:54 95 Nasal Cannula 21 09/03/17 05:23 97.3 67 20 150/89 94 Nasal Cannula 2.0 09/03/17 04:30 97.3 67 20 150/89 94 Nasal Cannula 2.0 09/03/17 04:00 65 09/03/17 00:04 95 18 Nasal Cannula 2.0 28 09/03/17 00:04 93 Nasal Cannula 2.0 28 09/03/17 00:04 Nasal Cannula 2.0 28 09/03/17 00:01 97.7 60 20 133/76 97 Room Air 09/03/17 00:00 61 09/02/17 21:16 99 160/78 09/02/17 20:05 97.2 71 20 165/91 98 Nasal Cannula 2.0 09/02/17 20:00 70 09/02/17 16:23 98.2 79 20 157/93 95 Nasal Cannula 2.0 09/02/17 16:00 77 09/02/17 12:33 97.7 67 20 153/91 96 Nasal Cannula 2.0 General Appearance: WD/WN HEENT: normocephalic, atraumatic Respiratory/Chest: chest wall non-tender, lungs clear Cardiovascular: normal peripheral pulses, normal rate Abdomen: normal bowel sounds, non distended Extremities: no cyanosis Skin: no rash, no ulcers Laboratory Tests 09/02/17 12:45: Troponin I 0.186H 09/02/17 19:05: Troponin I 0.166H Current Medications Medications (Trade) Dose Ordered Sig/Kalin Route PRN Reason Start Time Stop Time Status Last Admin Dose Admin Acetaminophen (Tylenol) 650 mg Q6H PRN ORAL Mild Pain/Temp > 100.5 08/30/17 06:30 09/29/17 06:29 08/30/17 14:07 Acetaminophen/ Hydrocodone Bitart ([place] 5/325) 1 tab Q6H PRN ORAL PAIN 4-10 08/30/17 18:15 09/06/17 18:14 Albuterol/ Ipratropium (Albuterol/ Ipratropium) 3 ml Q4H PRN HHN Shortness of Breath 08/30/17 06:15 09/04/17 06:14 Aspirin (ASA) 81 mg DAILY ORAL 08/30/17 09:00 09/29/17 08:59 09/03/17 08:26 Atorvastatin Calcium (Lipitor) 10 mg BEDTIME ORAL 08/30/17 21:00 09/29/17 20:59 09/02/17 21:15 Dextrose (Dextrose 50%) STAT PRN IV Hypoglycemia 08/30/17 12:15 09/29/17 12:14 Furosemide (Lasix) 40 mg DAILY IV 09/01/17 09:00 10/01/17 08:59 09/03/17 08:26 Heparin Sodium (Porcine) (Heparin 5000 units/ml) 5,000 units EVERY 8 HOURS SUBQ 08/30/17 14:00 09/29/17 13:59 08/31/17 14:39 Insulin Aspart (NovoLOG) BEFORE MEALS AND HS SUBQ 08/30/17 16:30 09/29/17 16:29 09/03/17 06:26 Metoprolol Tartrate (Lopressor) 25 mg EVERY 12 HOURS ORAL 08/30/17 21:00 09/29/17 20:59 09/03/17 08:25 Nitroglycerin (Ntg) 0.4 mg Q5MIN X 3 DOSES PRN SL Prn Chest Pain 08/30/17 14:45 09/29/17 14:44 Ondansetron HCl (Zofran) 4 mg Q6H PRN IVP Nausea & Vomiting 08/30/17 06:15 09/29/17 06:14 Promethazine HCl/ Codeine (Phenergan with Codeine) 5 ml Q4H PRN ORAL For Cough 08/30/17 12:15 09/29/17 12:14 Simethicone (Mylicon) 80 mg QIDPRN PRN ORAL GAS 08/31/17 14:30 09/30/17 14:29 RIVERA HUMPHRIES Sep 03, 2017 12:19
--- NOTE | 2017-09-03 14:42 | Cardiology Report ---
APPROVED REPORT EKG Measurement Heart [id number] SD 160P59 [id number] Normal sinus rhythm Nonspecific T wave abnormality Abnormal ECG
--- NOTE | 2017-09-03 14:56 | Cardiology Report ---
APPROVED REPORT EKG Measurement Heart [id number] SD 154P58 [id number] Normal sinus rhythm Possible Left atrial enlargement Borderline ECG
--- NOTE | 2017-09-03 18:59 | Internal Med Progress Note ---
Subjective Physician Name Enrique Love Attending Physician Enrique Love MD Allergies: Coded Allergies: No Known Allergies (Unverified , 08/30/17) Subjective awake, alert, responsive, No SOB, No CP, feeling"good" Objective Last Vital Signs Date Time Temp Pulse Resp B/P (MAP) Pulse Ox O2 Delivery O2 Flow Rate FiO2 09/03/17 12:00 97.5 63 18 135/80 91 Room Air 09/03/17 08:00 2.0 09/03/17 07:55 21 Laboratory Tests Test 09/02/17 19:05 Troponin I 0.166 ng/mL (0.000-0.056) Objective GENERAL: awake, alert, responsive, and in no acute distress. HEAD AND NECK: Pupils are equal and reactive to light. Extraocular muscles are intact. NECK: Supple. Positive JVD. LUNGS: Good air entry. No wheezing or rales. Decreased air in the bases. HEART: Reveals S1 and S2. Distant heart sounds. No murmur. ABDOMEN: Soft, nondistended, and nontender. Morbidly obese. EXTREMITIES: trace LE's edema, bilateral lower extremity with hyperpigmentation of bilateral lower extremities. No cyanosis or clubbing. 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 NEUROLOGIC: Cranial nerves II through XII are grossly intact. Motor is 5/5 in all extremities. Assessment/Plan Assessment/Plan ASSESSMENT: 1. Acute congestive heart failure exacerbation on chronic, possible diastolic dysfunction. 2. Chronic obstructive pulmonary disease. 3. Chronic hypoxemia, oxygen-dependent. 4. Chest pain, possible acute coronary syndrome. 5. Hyperkalemia. 6. Morbid obesity. 7. Diabetes type 2. 8. Hypertension. 9. EMMANUEL on CKD. PLAN: [place] Home today Refused home health or SNF placement.. Dr. Wei Prabhakar from Cardiology and Dr. Bella Carrington from Pulmonary Critical Care. Accu-Chek with sliding scale. Lasix IV switch to oral t. (Patient was seen earlier today. Signature timestamp does not reflect patient encounter time) Enrique Delcid MD, MD Sep 03, 2017 18:59
--- NOTE | 2017-09-04 19:28 | Discharge Summary ---
Discharge Summary Hospital Course Date of Admission Aug 30, 2017 at 03:02 Date of Discharge Sep 03, 2017 at 12:25 Admitting Diagnosis HPI Horace Cummings is a 66 year old male who was admitted on Aug 30, 2017 at 03:02 for Chest Pain,Weakness Hospital Course [id number] Discharge Discharge Disposition Patient was discharged to Home (01) Discharge Diagnoses: Germania Manriquez NP Sep 04, 2017 19:28
--- NOTE | 2017-09-05 15:15 | Discharge Summary 2 SIG ---
DATE OF ADMISSION: 08/30/2017 DATE OF DISCHARGE: 09/03/2017 CONSULTANTS: 1. Wei Prabhakar M.D. 2. Noe Cavazos M.D. 3. Bella Carrington M.D. BRIEF HOSPITAL COURSE: The patient is a 66-year-old gentleman with past medical history significant for COPD, hypertension, diabetes type 2, morbid obesity, and congestive heart failure presented to the hospital complaining of shortness of breath. The patient was initially seen at [facility]. He was recently at [facility] and was admitted there for six days, was discharged. However, the patient had chest tightness and shortness of breath. He presented to [facility] ED. Shortly after initial evaluation, he was transferred to [facility] for acute congestive heart failure exacerbation as well as possible acute coronary syndrome. The patient had a chest x-ray at [facility] that showed patchy infiltrates. He was then admitted to telemetry for cardiac evaluation He was resumed on his home medications. He was given aspirin and was continued on nebulizer treatments. Cardiac troponins were monitored. The patient had elevated troponin. However also has acute renal failure. He was continued on metoprolol 25 mg q.12 hours and Lipitor 10 mg nightly. He had an echocardiogram done that showed EF of 60% to 65% with dilated IVC and increased RA pressure. RVSP was 73 consistent with severe pulmonary hypertension. He was given Lasix. He was placed on O2 oxygenation p.r.n. There was no evidence of respiratory distress. Renal ultrasound done was negative. He had an elevated troponin levels, however, troponins are flat likely due to renal failure. He underwent myocardial perfusion test, results were not ischemic. 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 Lasix was changed to 40 mg p.o. daily. He was eventually discharged home, refused home health or SNF placement. FINAL DIAGNOSES: 1. Acute on chronic congestive heart failure in exacerbation, possible diastolic dysfunction. 2. Acute chronic obstructive pulmonary disease. 3. Chronic hypoxemia, oxygen dependent. 4. Chest pain possible acute coronary syndrome. 5. Hyperkalemia. 6. Morbid obesity. 7. Diabetes type 2. 8. Hypertension. 9. Above knee amputation, on chronic kidney disease. DISPOSITION: The patient was discharged home. DISCHARGE MEDICATIONS: Refer to medication list. FOLLOWUP: Follow up with PMD. Follow up as outpatient in a week. Enrique Love M.D. I have been assigned to dictate discharge summary on this account and I was not involved in the patient's management. Germnaia Manriquez N.P. DR: DOMENIC JOB#: [id number] CC: HAYDER
== END 2017-09-03 12:25 | disposition home or self-care (01) | DRG 291 ==
LOC: 2E 03:02
DX: I50.33 Acute on chronic diastolic (congestive) heart failure (principal); N17.0 Acute kidney failure with tubular necrosis; I27.20 Pulmonary hypertension, unspecified; Z68.41 Body mass index [BMI] 40.0-44.9, adult; E11.22 Type 2 diabetes mellitus with diabetic chronic kidney disease; J44.1 Chronic obstructive pulmonary disease with (acute) exacerbation; I24.9 Acute ischemic heart disease, unspecified; Z99.81 Dependence on supplemental oxygen; E87.5 Hyperkalemia; R09.02 Hypoxemia; E66.01 Morbid (severe) obesity due to excess calories; I12.9 Hypertensive chronic kidney disease with stage 1 through stage 4 chronic kidney disease, or unspecified chronic kidney disease; N18.9 Chronic kidney disease, unspecified; Z79.4 Long term (current) use of insulin
CPT/HCPCS: 36415; 71010; 76775; 78452; 80048; 80053; 80061; 82962; 83036; 83735; 83880; 84100; 84439; 84443; 84484; 85025; 87081; 93005; 93017; 93306; 94664; 94760; J1815; J2785